=== PATIENT | female | born 1995 | race Caucasian/White ===

== ENCOUNTER 2017-05-16 18:15 | Inpatient (IN) | payer BC ==
[2017-05-16 20:37] LABS: ABS Basophils 0 10^3/ul (0-0.2); ABS Eosinophils 0.1 10^3/ul (0-0.6); ABS Lymphocytes 1.3 10^3/ul (1.0-4.8); ABS Monocytes 0.6 10^3/ul (0-0.8); ABS Neutrophils 2.8 10^3/ul (1.5-7.7); ABS Nucleated RBC 0 10^3/ul; Eosinophil % 1.1 % (0-6); Hematocrit 38 % (35-47); Hemoglobin 12.7 g/dl (12.0-16.0); Lymphocyte % 27.9 % (25-47); Mean Corpuscular HGB Conc 34 g/dl (31-36); Mean Corpuscular Hemoglobin 30 pg (27-31); Mean Corpuscular Volume 91 fL (80-97); Mean Platelet Volume 8 um3 (7.4-10.4); Nucleated Red Blood Cells % 0; Platelet Count 286 10^3/ul (150-450); Red Blood Count 4.18 10^6/ul (4.0-5.4); Red Cell Distribution Width 14 % (10.5-15); White Blood Count 4.8 10^3/ul (3.5-10.8)
[2017-05-16 20:44] LABS: EGFR Non-African American 95.8 (>60)
--- NOTE | 2017-05-17 00:01 | ED ---
Progress - Consult/PCP Time Called: 18:15 Course/Dx - Course Course Of Treatment: ADMIT MHU - Diagnoses Provider Diagnoses: Mental health problem
[2017-05-17] MEDS ORDERED: Gabapentin CAP(*) 300 MG ONE (01:19)
[2017-05-17] MEDS ORDERED: Mirtazapine TAB* 15 MG ONE (01:19)
[2017-05-17] MEDS ORDERED: Al Hydrox/Mg Hydrox/Simet LIQ* 30 ML UDC PO PRN (03:09)
[2017-05-17] MEDS ORDERED: Mouth Piece, Nicotine* 1 EACH CARTRIDGE INH ONE (04:00)
[2017-05-17] MEDS: Vitamin THERAPEUTIC TAB PO SCH (08:07)
[2017-05-17] MEDS ORDERED: Gabapentin CAP(*) 300 MG PO SCH (09:00)
[2017-05-17] MEDS ORDERED: Mouth Piece, Nicotine* 1 EACH CARTRIDGE ONE (10:06)
[2017-05-17] MEDS: Nicotine Inhaler* 10 MG AMP INH PRN (10:06)
[2017-05-17] MEDS: Acetaminophen TAB* 325 MG PO PRN ×2 (10:48→15:16)
--- NOTE | 2017-05-17 11:30 | PN ---
MHU: Group Therapy Note - Service Type Service Type: [id number] Group Psychotherapy - Cognitive Behavioral Group Therapy ( CBT):Patient was attentive and participatory in CBT programming this morning, and remained in good behavioral control. Patient expressed positive insights regarding relevant treatment interventions and goals.
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
[2017-05-17] MEDS ORDERED: traZODone TAB* 50 MG TAB PO PRN (12:45)
[2017-05-17] MEDS ORDERED: clonazePAM TAB(*) 0.5 MG PO ONE ×2 (12:47→13:45)
[2017-05-17] MEDS: DULoxetine DR CAP* 30 MG CAP.DR PO SCH (13:05)
[2017-05-17] MEDS: Gabapentin CAP(*) 400 MG PO SCH ×2 (13:05→20:39)
[2017-05-17] MEDS: Nicotine GUM* 2 MG PO PRN (13:51)
[2017-05-17] MEDS: clonazePAM TAB(*) 0.5 MG PO PRN ×2 (17:55→22:30)
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
[2017-05-17] MEDS: Temazepam CAP* 15 MG PO SCH (20:39)
[2017-05-17] MEDS ORDERED: Mirtazapine TAB* 15 MG PO SCH (21:00)
[2017-05-18] MEDS: DULoxetine DR CAP* 30 MG CAP.DR PO SCH (08:25)
[2017-05-18] MEDS: DEXMETHYLPHENIDATE 15 MG PO SCH (08:25)
[2017-05-18] MEDS: Gabapentin CAP(*) 400 MG PO SCH ×3 (08:25→20:45)
[2017-05-18] MEDS: clonazePAM TAB(*) 0.5 MG PO PRN ×3 (08:26→16:20)
[2017-05-18] MEDS: Nicotine GUM* 2 MG PO PRN (09:15)
[2017-05-18] MEDS: Vitamin THERAPEUTIC TAB PO SCH (09:35)
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
[2017-05-18] MEDS ORDERED: ALPRAZolam TAB* 0.25 MG PO ONE (18:15)
[2017-05-18] MEDS: ALPRAZolam TAB* 0.25 MG PO PRN (20:45)
[2017-05-18] MEDS: Temazepam CAP* 15 MG PO SCH (20:45)
[2017-05-19] MEDS: DEXMETHYLPHENIDATE 15 MG PO SCH (08:20)
[2017-05-19] MEDS: DULoxetine DR CAP* 30 MG CAP.DR PO SCH (08:21)
[2017-05-19] MEDS: Gabapentin CAP(*) 400 MG PO SCH ×3 (08:21→20:06)
[2017-05-19] MEDS: Vitamin THERAPEUTIC TAB PO SCH (08:21)
[2017-05-19] MEDS: ALPRAZolam TAB* 0.25 MG PO SCH ×3 (08:23→16:38)
[2017-05-19] MEDS: ALPRAZolam TAB* 0.25 MG PO PRN ×2 (10:42→18:49)
[2017-05-19] MEDS: Nicotine Inhaler* 10 MG AMP INH PRN (10:43)
[2017-05-19 19:43] LABS: Urine Appearance Cloudy; Urine Blood 1+ (Negative); Urine Color Amber; Urine Ketones 1+ (Negative); Urine Protein 1+(30 mg/dL) (Negative); Urine Specific Gravity 1.028 (1.010-1.030); Urine Urobilinogen Negative (Negative)
[2017-05-19] MEDS: Temazepam CAP* 15 MG PO SCH (20:06)
[2017-05-20] MEDS: Nicotine Inhaler* 10 MG AMP INH PRN (06:50)
[2017-05-20] MEDS: Acetaminophen TAB* 325 MG PO PRN (07:32)
[2017-05-20] MEDS: DULoxetine DR CAP* 30 MG CAP.DR PO SCH (07:32)
[2017-05-20] MEDS: DEXMETHYLPHENIDATE 15 MG PO SCH (07:32)
[2017-05-20] MEDS: Gabapentin CAP(*) 400 MG PO SCH ×3 (07:32→21:48)
[2017-05-20] MEDS: ALPRAZolam TAB* 0.25 MG PO SCH ×3 (07:33→17:08)
[2017-05-20] MEDS: Vitamin THERAPEUTIC TAB PO SCH (07:33)
[2017-05-20] MEDS: ALPRAZolam TAB* 0.25 MG PO PRN ×3 (10:21→21:48)
[2017-05-20] MEDS: Nicotine GUM* 2 MG PO PRN (14:16)
--- NOTE | 2017-05-20 17:51 | PN ---
Subjective - Subjective Subjective: Mara maintains her request for discharge (submitted a 72-hour notice on Sunday05/18/17). Being here makes me more anxious and depressed. She c/o poor sleep, numbness of her upper lip and philtrum. She describes that relatives have been visiting. She continues with poor insight even after psychoeducation that she came in in a crisis situation and leaving prematurely may lead to further decompensation and readmission. Objective - Appearance Appearance: Healthy Appearing Dysmorphic Features: No Hygiene: Normal Grooming: Well Kept - Behavior Psychomotor Activities: Abnormal-Decreased - Attitude and Relatedness Attitude and Relatedness: Child Like Eye Contact: Poor - Speech Quality: Unpressured Latencies: Normal Quantity: Terse - Mood Patient's Decription of Mood: "Anxious" - Affect Observed Affect: Tearful Affect Consistent with: Dysphoria - Thought Process Patient's Thought Process: Coherent, Impoverished Thought Content: No Passive Wish, No Suicidal Planning, No Homicidal Ideation, No Paranoid Ideation - Sensorium Experiencing Hallucinations: No, Sensorium is Clear - Level of Consciousness Level of Consciousness: Alert Orientation: Yes Intact - Impulse Control Impulse Control: Intact - Insight and Judgement Insight and Judgement: Poor - Group Participation Particating in Group Activities: Yes - Medication Management Medication Management Adherence: Yes Assessment - Assessment Merits Inpatient Hospitalization: For Ongoing Evaluation, Consolidate Improvements, For Discharge Planning Inpatient DSM-IV Dx: ADHD; LD; Unspecified anxiety disorder; Considrations for PTSD; Clinical Impression: Poor therapeutic engagement, fixated on discharge home, compliant with prescribed meds. Plan - Plan Treatment Plan: Name: MARA RODRIGUEZ Birthdate: 1995 [id number] Medications: Current Medications Acetaminophen (Tylenol Tab*) 650 mg PO Q4H PRN PRN Reason: PAIN or TEMP > 101 F Last Admin: 05/20/17 07:32 Dose: 650 mg Al Hydrox/Mg Hydrox/Simethicone (Maalox Plus*) 30 ml PO Q4H PRN PRN Reason: INDIGESTION Alprazolam (Xanax Tab*) 0.25 mg PO TID@0900,1300,1700 [facility] Last Admin: 05/20/17 17:08 Dose: 0.25 mg Alprazolam (Xanax Tab*) 0.25 mg PO Q4H PRN PRN Reason: ANXIETY Last Admin: 05/20/17 15:12 Dose: 0.25 mg Dexmethylphenidate HCl (Focalin Xr (Nf)) 15 mg PO DAILY [facility] Last Admin: 05/20/17 07:32 Dose: 15 mg Duloxetine HCl (Cymbalta Cap*) 30 mg PO DAILY [facility] Last Admin: 05/20/17 07:32 Dose: 30 mg Gabapentin (Neurontin Cap(*)) 400 mg PO TID [facility] Last Admin: 05/20/17 12:30 Dose: 400 mg Multivitamins (Theragran Tab*) 1 tab PO DAILY [facility] Last Admin: 05/20/17 07:33 Dose: 1 tab Nicotine (Nicotine Inhaler*) 10 mg INH Q2H PRN PRN Reason: CRAVING Last Admin: 05/20/17 06:50 Dose: 10 mg Nicotine Polacrilex (Nicotine Gum*) 2 mg PO Q2H PRN PRN Reason: CRAVING Last Admin: 05/20/17 14:16 Dose: 2 mg Temazepam (Restoril Cap*) 15 mg PO BEDTIME [facility] Last Admin: 05/19/17 20:06 Dose: 15 mg Trazodone HCl (Desyrel Tab*) 50 mg PO BEDTIME PRN PRN Reason: INSOMNIA Last Admin: 05/18/17 20:45 Dose: 50 mg - Discharge Plan Discharge Plan: Outpatient Follow Up Outpatient Program: [facility]
[2017-05-20] MEDS: Temazepam CAP* 15 MG PO SCH (21:48)
[2017-05-21] MEDS: ALPRAZolam TAB* 0.25 MG PO PRN (06:21)
[2017-05-21] MEDS: Gabapentin CAP(*) 400 MG PO SCH (08:25)
[2017-05-21] MEDS: DEXMETHYLPHENIDATE 15 MG PO SCH (08:25)
[2017-05-21] MEDS: DULoxetine DR CAP* 30 MG CAP.DR PO SCH (08:25)
[2017-05-21] MEDS: Acetaminophen TAB* 325 MG PO PRN (08:25)
[2017-05-21] MEDS: ALPRAZolam TAB* 0.25 MG PO SCH (08:26)
[2017-05-21] MEDS: Vitamin THERAPEUTIC TAB PO SCH (08:26)
[2017-05-21 08:37] VITALS: BP 132/65
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
== END 2017-05-21 12:40 | disposition home or self-care (01) | DRG 758 ==
LOC: ED 18:15 → BSU 23:41
PROVIDERS: ADMIT Psychiatry & Neurology Psychiatry; ATTEND Psychiatry & Neurology Psychiatry
DX: F90.0 Attention-deficit hyperactivity disorder, predominantly inattentive type (principal); R45.851 Suicidal ideations; F41.9 Anxiety disorder, unspecified; F12.10 Cannabis abuse, uncomplicated; F10.10 Alcohol abuse, uncomplicated; F81.2 Mathematics disorder; F81.0 Specific reading disorder; Y90.0 Blood alcohol level of less than 20 mg/100 ml; Z79.899 Other long term (current) drug therapy; Z88.2 Allergy status to sulfonamides; Z88.8 Allergy status to other drugs, medicaments and biological substances; Z81.8 Family history of other mental and behavioral disorders
CPT/HCPCS: 36415; 70551; 80053; 80307; 80320; 80329; 81003; 81015; 84443; 84702; 85025; 90853; 99222; 99231; 99232; 99238; 99285; A9270-GY; G0480

== ENCOUNTER 2018-06-29 18:05 | Inpatient (IN) | payer BC ==
--- NOTE | 2018-06-29 18:28 | ED ---
Medical Screening - HPI Summary HPI Summary: Patient complains of SI and taking potentially 17 pills of focalin ER 10 mg last night. Prescription was filled yesterday, patient states she took pills yesterday night, and 17 pills are missing from the prescription in the bottle. Parents called EMS because patient was acting strangely, appearing paranoid and also has not slept since taking pills. Patient herself is alert and oriented, calm, denies any symptoms including fever, cough, sore throat, CP, SOB, N/V/D, bowel pain, change in urine, change in BM. Pt states she just wants to go home. Patient interactive but refuses to answer most history of present illness questions. Medical history is ADD, PTSD. - History of Current Complaint Stated Complaint: OVERDOSE/2209 PER PT Time Seen by Provider: 06/29/18 18:08 Onset/Duration: Started Hours Ago PMH/Surg Hx/FS Hx/Imm Hx Endocrine/Hematology History: Denies: Hx Anticoagulant Therapy Cardiovascular History: Denies: Hx Pacemaker/ICD GI History: Denies: Hx Irritable Bowel History: Denies: Hx Acute Renal Failure, Hx Benign Prostatic Hyperplasia Musculoskeletal History: Denies: Hx Rheumatoid Arthritis, Hx Bursitis, Hx Congenital Bone Abnormalities Sensory History: Reports: Hx Contacts or Glasses Denies: Hx Hearing Aid Opthamlomology History: Reports: Hx Contacts or Glasses EENT History: Denies: Hx Deafness Neurological History: Denies: Hx Dementia Psychiatric History: Reports: Hx Anxiety, Hx Depression, Hx Post Traumatic Stress Disorder, Hx Community Mental Health Tx, Hx Bipolar Disorder, Hx Suicide Attempt Denies: Hx Eating Disorder, Hx Panic Disorder, Hx of Violent Episodes Against Others - Immunization History Date of Tetanus Vaccine: June 2012 Infectious Disease History: No Infectious Disease History: Denies: Traveled Outside the [place] in Last 30 Days - Family History Known Family History: Negative: Diabetes, Renal Disease, Respiratory Disease, Seizure Disorder - Social History Alcohol Use: None Substance Use Type: Reports: None Smoking Status (MU): Current Every Day Smoker Type: eCigarettes Have You Smoked in the Last Year: Yes Review of Systems Constitutional: Negative Eyes: Negative ENT: Negative Cardiovascular: Negative Respiratory: Negative Gastrointestinal: Negative Genitourinary: Negative Skin: Negative Neurological: Negative Positive: Anxious All Other Systems Reviewed And Are Negative: Yes Physical Exam Triage Information Reviewed: Yes Vital Signs On Initial Exam: Initial Vitals Temp Pulse Resp BP Pulse Ox 98.4 F 81 18 136/91 96 06/29/18 18:09 06/29/18 18:09 06/29/18 18:09 06/29/18 18:09 06/29/18 18:09 Vital Signs Reviewed: Yes Appearance: Positive: Well-Appearing Skin: Positive: Warm Head/Face: Positive: Normal Head/Face Inspection Eyes: Positive: Normal Neck: Positive: Supple Respiratory/Lung Sounds: Positive: Clear to Auscultation Cardiovascular: Positive: Normal Abdomen Description: Positive: Nontender Musculoskeletal: Positive: Normal Neurological: Positive: Normal Psychiatric: Positive: Normal AVPU Assessment: Alert - Beaver Coma Scale Best Eye Response: 4 - Spontaneous Best Motor Response: 6 - Obeys Commands Best Verbal Response: 5 - Oriented Coma Scale Total: 15 Diagnostics - Vital Signs Vital Signs Temp Pulse Resp BP Pulse Ox 06/29/18 18:09 98.4 F 81 18 136/91 96 - Laboratory Result Diagrams: 06/29/18 18:32 06/29/18 18:32 Lab Statement: Any lab studies that have been ordered have been reviewed, and results considered in the medical decision making process. Re-Evaluation - Re-Evaluation First Eval Re-Evaluation Time: 08:55 Change: Worse Comment: Pt is upset and crying. She states she wants to leave and attempted to walk out of the ED. Will give Geodon, Ativan, and soft restraints. Course/Dx - Course Course Of Treatment: Patient complains of SI and taking potentially 17 pills of focalin ER 10 mg last night. Prescription was filled yesterday, patient states she took pills yesterday night, and 17 pills are missing from the prescription in the bottle. Parents called EMS because patient was acting strangely, appearing paranoid and also has not slept since taking pills. Patient herself is alert and oriented, calm, denies any symptoms including fever, cough, sore throat, CP, SOB, N/V/D, bowel pain, change in urine, change in BM. Pt states she just wants to go home. Patient interactive but refuses to answer most history of present illness questions. Medical history is ADD, PTSD. Physical exam unremarkable. Vital signs within normal limits. Labs unremarkable. EKG sinus rhythm with normal QRS and QTc. Patient increasingly agitated here in the ED. Poison control recommended ordering CK level, and observing 12 hours as pt took Focalin ER. Observation would thus end at 6 AM. Also stated patient could be given benzodiazepine for agitation. Patient agitation decreased after Ativan 2 mg IM. - Diagnoses Provider Diagnoses: Suicide attempt, Amphetamine overdose, Psychotic disorder Discharge - Sign-Out/Discharge Documenting (check all that apply): Sign-Out Patient Signing out patient TO: Trevor Gomez Patient Received Moderate/Deep Sedation with Procedure: No - Discharge Plan Condition: Fair Disposition: PSYCHIATRIC FACILITY-[facility] - Billing Disposition and Condition Condition: FAIR Disposition: Psychiatric Facility [facility]
--- OUTSIDE RECORDS SUMMARY | 2018-06-29 18:40 | XMS REPORT | Continuity of Care Document ---
:1995 External Reference #:[id number] Author Name Raina Arvizu M.D. Address [address] [place] [address] Care Team Providers Name Role Phone LILIYA Kevin Care Team Information Consumer Marketing Manager Unavailable Payers Date Identification Numbers Payment Provider Subscriber Effective: Policy Number: [id number] Child Health Colleen Choi 2011 Plus--ROCH Expires: 2011 PayID: [id number] [address] [address] [place] [address] Effective: 2011 Policy Number: NALLELY/FRANKIE,Child [facility] Plus Mara Choi [id number] Expires: 2012 Group Name: [facility] [address] [address] PayID: [id number] PUMA Husain [id number] Effective: 2012 Policy Number: [id number] [facility] Group Name: [facility] [address] [address] PayID: [id number] [place] [address] Advance Directives Description No Information Available Problems Date Description Provider Status Onset: 07/17/2012 Gastroesophageal reflux disease Gisele Gutierrez M.D., R.D. Active Onset: 07/17/2012 Generalized anxiety disorder LILIYA Jacobs Active Family History Date Family Member(s) Observation Comments Father Hypertension Father Diabetes Father Thyroid Disease - hypothyroid Paternal Grandfather CAD Paternal Grandmother CAD Maternal Grandfather Cancer, Unknown Site "in the eye" Maternal Grandmother due to CAD () - in her 70's Social History Type Date Description Comments Sex Unknown Lives With Mother Lives With Grandfather Diet Healthy, Well Balanced Smoke-Free Home is smoke-free Cigarette Use Negative For current vaping but cutting cigarette smoker down- working on quitting (05/2018) ETOH Use Denies alcohol use Tobacco Use Start: Unknown Patient is a current smoker, smokes some days Recreational Drug Use Denies Drug Use Enjoy Exercising Enjoys exercising Allergies, Adverse Reactions, Alerts Date Description Reaction Status Severity Comments 10/31/2001 Sulfa Active Rash Medications Medication Date Status Form Strength Qnty SIG Indications Ordering Provider Vitamin B-12 07/16 Active Tablets 500mcg 30tab 1 by mouth Shawnti Natural s every day LILIYA Calderón Vitamin D-1000 07/16 Active Tablets 1000Unit 1 by mouth Shawnti Maximum Strength /2017 every day LILIYA Calderón Gabapentin 11/29 Active Capsules 400mg 120ca 1 tab by Cuong ps mouth four [place] times a , MD day Nexplanon 04/26 Active Implant 68mg inserted Raina04/26/2016- Topher Arvizu, 04/2019 Ra Dexmethylphenidat Active Caps ER 10mg Unknown e Hydrochloride / 24HR ER Gabapentin 06/14 Hx Capsules 400mg 40cap 1 po qid s Guillermo Zaman, Marielena [employer] 06/24 Ondansetron 11/22 Hx Tablets 4mg 15tab dissolve 1 R11.0 Dispers s tab by Jackson, - mouth [employer] 03/26 times a day as needed nausea Pantoprazole 11/[address] 40mg 90tab 1 by mouth R11.0 Freda Sodium s every day Jackson, - [employer] 03/26 Bacitracin Zinc 11/22 Hx Ointment 500Unit/G 14gm apply to S60.414A M wound Jackson, - twice [employer] 03/26 daily needed Xanax 10/31 Hx Tablets 0.5mg 30tab 1/2 to 1 Freda s by mouth Jackson, - twice a [employer] 03/26 day needed anxiety Gabapentin 10/16 Hx Capsules 400mg 90cap 1 tab by s mouth Jackson, - three [employer] 11/28 times a day Clonazepam 10/12 Hx Tablets 0.5mg 60tab 1 by mouth s three Jackson, - times a [employer] 10/31 day needed for anxiety Sertraline HCL 09/15 Hx Tablets 100mg 90tab 1 by mouth F41.1 s every day Jackson, - [employer] 09/15 Sertraline HCL 09/15 Hx Tablets 100mg 90tab 1 by mouth F41.1 s every day Jackson, - [employer] 03/26 Sertraline HCL 09/15 Hx Tablets 50mg 90tab 1 by mouth s every day Jackson, - along with [employer] 03/26 100mg /2016 Effexor XR 09/13 Hx Caps ER 75mg 30cap 1 by mouth 24HR s every day Jackson, - [employer] 09/13 Effexor XR 09/13 Hx Caps ER 150mg 30cap take one 24HR s capsule by Jackson, - mouth [employer] 09/15 every as needed for anxiety/de pression Sertraline HCL 08/15 Hx Tablets 100mg 30tab 1 by mouth F41.1 s every day Jackson, - [employer] 09/15 Sertraline HCL 07/18 Hx Tablets 50mg 30tab 1 by mouth F41.1 s every day Jackson, - [employer] 08/15 Effexor XR 07/11 Hx Caps ER 37.5mg 30cap 1 by mouth 24HR s every day Jackson, - [employer] 09/13 Effexor XR 05/22 Hx Caps ER 75mg 90cap take 1 24HR s capsule by Jackson, - mouth once [employer] 07/11 Effexor XR 05/14 Hx Caps ER 37.5mg 30cap 1 capsule 24HR s qd Jackson, - [employer] 05/22 Mupirocin 11/25 Hx Ointment 2% 22gm apply a small Jackson, - amount to [employer] 03/26 area(s) daily Gabapentin 06/21 Hx Capsules 400mg 270ca 1 tab by ps mouth Cherelle - three III, 07/18 times a [employer] day Gabapentin 04/05 Hx Tablets 800mg 90tab take one s tablet by Jackson, - mouth [employer] 06/21 twice a day Xanax 04/05 Hx Tablets 1mg 23tab 1 tab by s mouth once Jackson, - a day [employer] 10/16 Klonopin 06/13 Hx Tablets 1mg 60tab 04/17 to 1 300.02 s tab by Jackson, - mouth [employer] 04/05 twice day Buspirone HCL 05/12 Hx Tablets 5mg 60tab 1 po bid V25.09 s Jackson, - [employer] 06/13 Xanax 05/12 Hx Tablets 0.25mg 15fif 1 tab po V25.09 teen qd prn Jackson, - anxiety [employer] 06/13 Paroxetine HCL 10/21 Hx Tablets 10mg 30tab 1 po qd as 300.02 s directed Jackson, - in [employer] 05/12 tapering instructio ns Depo-Provera 07/03 Hx Suspension 150mg/ml 1 ml im q 3 mos Jackson, - [employer] 07/18 Gummi Bear 02/16 Hx Chewtabs 1 po qd Gisele Multivitamin/ lonnie Gutierrez M.D., 05/12 R.D. /2013 Omeprazole 02/[address] 20mg 30cap 1 po qd 530.81 Marielena Gacria M.D., 05/12 R.D. /2013 Paroxetine HCL 04/24 Hx Tablets 40mg 90tab take 1 300.02 s tablet po Jackson, - daily [employer] 11/18 Amoxicillin 03/23 Hx Capsules 500mg 30cap 1 po tid 382.9 Shawnti s for Guillermo Zaman, - infection [employer] 04/02 Paroxetine HCL 03/06 Hx Tablets 30mg 30tab 1 po qd 300.02 s Jackson, - [employer] 04/24 Hydroxyzine HCL 03/06 Hx Tablets 25mg 30tab 1-2 po q 6 300.02 s hr prn Jackson, - [employer] 02/16 Ergocalciferol 03/06 Hx Tablets 50,000Uni 8tabs take 1 300.02 ts tablet Jackson, - twice a [employer] 02/16 week for weeks Fluoxetine HCL 01/24 Hx Capsules 40mg 30cap Take 1 s tablet po Jackson, - hs [employer] 02/16 Fluoxetine HCL 12/27 Hx Capsules 10mg 100ca 3 tablet 311 ps po qd Jackson, - [employer] 01/24 Fluoxetine HCL 12/12 Hx Capsules 10mg 49QS 1 tablet 311 po qd for Jackson, - 1 week [employer] 12/27 then tablets po daily Ciprofloxacin 05/25 Hx Solution 0.3% 5ml 2 gtts Zaid Ophthalmic /2005 q4h, while Keagan, - awake M.D. 10/27 Cipro HC 04/18 Hx Suspension 0.2%;1 % 10ml 3 gtts Otic bid Keagan - M.D. 07/17 Positive 06/20 Hx had Jody Varicella Titer /2004 chicken A. - pox age 2. Tirso, 05/25 titer F.N.P.C. /2005 drawn 06/03/04. proof of immunity Kenalog 06/30 Hx Cream 0.1% 30G apply bid 782.1 Amy /2003 to itchy K.W. - rash Eb, 10/27 M.D. /2005 Septra 09/16 Hx 40/200Sus QS 2 tsp po Raina /2001 p bid for 7 P. - days Blegen, 06/03 M.D. /2004 Amoxicillin 06/25 Hx Tabs 250mg 30tab Chew And 034.0 s Swallow P. - One Tablet Blegen, 07/05 Three M.D. Times Per Day Until Prescripti on Is Finished Omeprazole Hx Capsules DR 20mg 30cap 1 by mouth Cuong /0000 s every day Mauricio Peguero MD 07/18 Alprazolam Hx Tablets 1mg 90tab Take One Freda /0000 s Tablet By Jackson, - Mouth [employer] 07/18 Times A Day Maximum Daily Dose=3 Aripiprazole Hx Tablets 5mg Unknown / - 07/16 Clonazepam Hx Tablets 0.5mg Unknown - 07/16 Trazodone HCL Hx Tablets 50mg Unknown - 07/16 Alprazolam Hx Tablets 0.25mg Unknown - 07/16 Dexmethylphenidat Hx Caps ER 20mg Unknown e HCL ER /0000 24HR - 07/16 [address]ox[address] HCL Hx Caps [address] 30mg Unknown /0000 Part - 07/16 Medications Administered in Office Medication Date Status Form Strength Qnty SIG Indications Ordering Provider Medroxyprogesteron 02/13 Administered Injection Lab and e Acetate 1 MG Office (Depo-Provera) Services Injection Medroxyprogesteron 11/25 Administered Injection Freda e Acetate MG Jackson (Depo-Provera) [employer] Injection Medroxyprogesteron 09/05 Administered Injection Lab and e Acetate MG Office (Depo-Provera) Services Injection Medroxyprogesteron 06/17 Administered Injection Freda e Acetate 1 MG Jackson (Depo-Provera) [employer] Injection Medroxyprogesteron 04/05 Administered Injection Lab and e Acetate MG Office (Depo-Provera) Services Injection Medroxyprogesteron 10/03 Administered Injection Freda e Acetate 1 MG Jackson (Depo-Provera) [employer] Injection Medroxyprogesteron 07/22 Administered Injection Lab and e Acetate 1 MG Office (Depo-Provera) Services Injection Medroxyprogesteron 05/12 Administered Injection Freda e Acetate 1 MG /2013 Jackson, (Depo-Provera) [employer] Injection Medroxyprogesteron 02/21 Administered Injection Amy e Acetate 1 MG /2012 Nanda (Depo-Provera) Eb, Injection M.D. Medroxyprogesteron 10/21 Administered Injection Freda e Acetate 1 MG /2012 Jackson, (Depo-Provera) [employer] Injection Medroxyprogesteron 08/05 Administered Injection Lab and e Acetate 1 MG /2012 Office (Depo-Provera) Services Injection Depo 05/06 Administered Injection Gisele Provera--Injection /2012 Brenda, --150 MG M.D., R.D. Immunizations CPT Code Status Date Vaccine Lot # [id number] Given 03/26/2017 Influenza Virus Vaccine, Quadrivalent, 3 Yr > [id number] Quad, Preserv Free 33203 Given 03/15/2016 Influenza Virus Vaccine, Quadrivalent, 3 Yr > [id number] Quad, Preserv Free 99585 Given 03/15/2016 HPV Vaccine 9 (Gardasil 9), 3 Dose [id number] 84766 Given 10/27/2005 Tdap (Adacel) [id number] 79601 Given 06/06/1995 DPT & Hib Vaccine, Combined 59696 Given 05/02/1995 MMR (Measles,Mumps,Rubella) 47475 Given 1994 Hep B Vaccine, Ped/Adol Dose 3 Dose VFC (Engerix or Recombivax) 26892 Given 1994 Opv (Poliovirus,Oral) 27357 Given 1994 DPT 95688 Given 1994 Hib (Hemophilus Influenza B) (Acthib) 08637 Given 1994 DPT & Hib Vaccine, Combined 40966 Given 1994 Opv (Poliovirus,Oral) 72239 Given 1994 Hep B Vaccine, Ped/Adol Dose 3 Dose VFC (Engerix or Recombivax) 55176 Given 1994 DPT & Hib Vaccine, Combined 83566 Given 1994 Opv (Poliovirus,Oral) 13526 Given 1994 Hep B Vaccine, Ped/Adol Dose 3 Dose VFC (Engerix or Recombivax) Vital Signs Date Vital Result Comment 06/04/2018 3:36pm Weight 123.00 lb Weight 55.793 kg BP Systolic 108 mmHg BP Diastolic 68 mmHg Heart Rate 68 /min Body Temperature 98.2 F Respiratory Rate 16 /min O2 % BldC Oximetry 98 % 07/16/2017 10:34am Weight 138.00 lb Weight 62.597 kg BP Systolic 100 mmHg BP Diastolic 62 mmHg Heart Rate 68 /min Body Temperature 98.4 F Respiratory Rate 16 /min 03/26/2017 2:00pm Weight 140.00 lb Weight 63.504 kg BP Systolic 110 mmHg BP Diastolic 64 mmHg Heart Rate 65 /min Body Temperature 96.8 F Respiratory Rate 16 /min O2 % BldC Oximetry 99 % 11/22/2016 4:35pm Weight 147.00 lb Weight 66.679 kg BP Systolic 110 mmHg BP Diastolic 70 mmHg Heart Rate 56 /min Body Temperature 97.9 F Respiratory Rate 14 /min 10/16/2016 3:40pm Weight 150.00 lb Weight 68.040 kg BP Systolic 100 mmHg BP Diastolic 52 mmHg Heart Rate 88 /min 08/15/2016 4:27pm Weight 150.00 lb Weight 68.040 kg BP Systolic 100 mmHg BP Diastolic 65 mmHg Heart Rate 64 /min Body Temperature 99.5 F 07/18/2016 3:29pm Weight 151.00 lb Weight 68.494 kg BP Systolic 110 mmHg BP Diastolic 70 mmHg Heart Rate 88 /min Body Temperature 98.2 F Respiratory Rate 14 /min O2 % BldC Oximetry 98 % 04/26/2016 4:13pm Weight 155.00 lb Weight 70.308 kg BP Systolic 120 mmHg BP Diastolic 78 mmHg Heart Rate 64 /min 04/21/2016 4:24pm Weight 155.00 lb Weight 70.308 kg BP Systolic 108 mmHg BP Diastolic 72 mmHg Heart Rate 71 /min Body Temperature 99.2 F Respiratory Rate 16 /min Height 64.5 inches 5'4.50" BMI (Body Mass Index) 26.2 kg/m2 O2 % BldC Oximetry 99 % 03/15/2016 2:36pm Weight 156.00 lb Weight 70.762 kg BP Systolic 120 mmHg BP Diastolic 60 mmHg Heart Rate 80 /min O2 % BldC Oximetry 99 % 11/26/2015 3:35pm Weight 154.00 lb Weight 69.854 kg BP Systolic 110 mmHg BP Diastolic 74 mmHg Heart Rate 85 /min Body Temperature 99.0 F Respiratory Rate 16 /min 06/22/2015 4:21pm Weight 157.00 lb Weight 71.215 kg BP Systolic 110 mmHg BP Diastolic 80 mmHg Heart Rate 68 /min 06/18/2015 11:17am Weight 154.00 lb Weight 69.854 kg BP Systolic 118 mmHg BP Diastolic 66 mmHg Heart Rate 72 /min Body Temperature 98.9 F 11/23/2014 4:17pm Weight 152.00 lb Weight 68.947 kg BP Systolic 110 mmHg BP Diastolic 64 mmHg Heart Rate 72 /min 10/03/2013 4:10pm Weight 143.00 lb Weight 64.865 kg BP Systolic 98 mmHg BP Diastolic 60 mmHg Heart Rate 84 /min 06/13/2013 8:54am Weight 140.00 lb Weight 63.504 kg BP Systolic 114 mmHg BP Diastolic 68 mmHg Heart Rate 84 /min Height 64.5 inches 5'4.50" BMI (Body Mass Index) 23.7 kg/m2 05/12/2013 9:03am Weight 146.00 lb W/Boots Weight 66.226 kg BP Systolic 90 mmHg BP Diastolic 56 mmHg Heart Rate 72 /min 02/21/2013 9:55am Weight 150.00 lb Weight 68.040 kg BP Systolic 98 mmHg BP Diastolic 72 mmHg Heart Rate 72 /min Body Temperature 97.6 F 01/10/2013 11:13am Weight 148.00 lb Weight 67.133 kg BP Systolic 96 mmHg BP Diastolic 74 mmHg Heart Rate 76 /min Weight Percentile 80th 11/18/2012 2:46pm Weight 141.00 lb Weight 63.958 kg BP Systolic 110 mmHg BP Diastolic 70 mmHg Heart Rate 76 /min Body Temperature 98.4 F Weight Percentile 74th 10/21/2012 9:00am Weight 139.00 lb Weight 63.050 kg BP Systolic 110 mmHg BP Diastolic 66 mmHg Heart Rate 84 /min Weight Percentile 71st 07/03/2012 9:06am Weight 138.00 lb Weight 62.597 kg BP Systolic 116 mmHg BP Diastolic 80 mmHg Heart Rate 80 /min Height 64 inches 5'4" Height Percentile 46 % Weight Percentile 71st BMI (Body Mass Index) 23.7 kg/m2 Body Mass Index Percentile 73 % 05/06/2012 11:03am Weight 141.00 lb Weight 63.958 kg BP Systolic 102 mmHg BP Diastolic 68 mmHg Heart Rate 80 /min Weight Percentile 75th 02/17/2012 8:54am Weight 140.00 lb Weight 63.504 kg BP Systolic 104 mmHg BP Diastolic 80 mmHg Heart Rate 84 /min Body Temperature 98.0 F Weight Percentile 75th 04/24/2011 3:32pm Weight 135.00 lb Weight 61.236 kg BP Systolic 124 mmHg BP Diastolic 60 mmHg Heart Rate 108 /min Weight Percentile 71st 03/23/2011 4:46pm Weight 128.00 lb Weight 58.061 kg BP Systolic 98 mmHg BP Diastolic 60 mmHg Heart Rate 874 /min Body Temperature 99.2 F Weight Percentile 61st 03/06/2011 11:01am Weight 131.00 lb Weight 59.422 kg BP Systolic 106 mmHg BP Diastolic 68 mmHg Heart Rate 84 /min Weight Percentile 66th 01/24/2011 9:13am Weight 135.00 lb Weight 61.236 kg BP Systolic 88 mmHg BP Diastolic 62 mmHg Heart Rate 68 /min Height 65 inches 5'5" Height Percentile 63 % Weight Percentile 72nd BMI (Body Mass Index) 22.5 kg/m2 Body Mass Index Percentile 67 % 12/27/2010 8:57am Weight 134.00 lb Weight 60.782 kg BP Systolic 86 mmHg BP Diastolic 60 mmHg Heart Rate 68 /min Body Temperature 97.7 F Weight Percentile 7112/12/2010 9:24am Weight 138.00 lb Weight 62.597 kg BP Systolic 96 mmHg BP Diastolic 60 mmHg Heart Rate 60 /min Weight Percentile 76th 04/19/2010 3:39pm Weight 137.00 lb Weight 62.143 kg BP Systolic 110 mmHg BP Diastolic 64 mmHg Heart Rate 72 /min Weight Percentile 7704/18/2010 4:13pm Weight 138.00 lb Weight 62.597 kg BP Systolic 104 mmHg BP Diastolic 60 mmHg Heart Rate 94 /min Weight Percentile 78th 10/29/2009 3:25pm Weight 136.00 lb Weight 61.690 kg BP Systolic 110 mmHg BP Diastolic 68 mmHg Heart Rate 76 /min Body Temperature 99.5 F Weight Percentile 7707/28/2009 4:11pm Weight 134.00 lb Weight 60.782 kg BP Systolic 105 mmHg BP Diastolic 70 mmHg Heart Rate 72 /min Body Temperature 98.8 F Weight Percentile 76th O2 % BldC Oximetry 99 % AT Room Air 03/25/2008 2:34pm Weight 124.00 lb Weight 56.246 kg BP Systolic 100 mmHg BP Diastolic 70 mmHg Heart Rate 80 /min Body Temperature 97.7 F Weight Percentile 74th 02/24/2008 3:07pm Weight 125.00 lb Weight 56.700 kg Body Temperature 97.6 F Weight Percentile 76th 07/17/2007 4:14pm Weight 135.00 lb Weight 61.236 kg Body Temperature 101.4 F Weight Percentile 9011/19/2006 12:03pm Weight 128.00 lb Weight 58.061 kg BP Systolic 100 mmHg BP Diastolic 60 mmHg Body Temperature 99.2 F Weight Percentile 9011/09/2006 3:36pm Weight 128.00 lb Weight 58.061 kg BP Systolic 110 mmHg BP Diastolic 70 mmHg Body Temperature 97.0 F Weight Percentile 90th 10/27/2005 12:56pm Weight 126.00 lb Weight 57.154 kg BP Systolic 98 mmHg BP Diastolic 62 mmHg Heart Rate 68 /min Height 61.25 inches 5'1.25" Height Percentile 81 % Weight Percentile 95th BMI (Body Mass Index) 23.6 kg/m2 Body Mass Index Percentile 95 % Right Visual Acuity Distance 20/20 Left Visual Acuity Distance 20/20 05/25/2005 11:04am Weight 115.00 lb Weight 52.164 kg Body Temperature 98.3 F Weight Percentile 93rd 05/22/2005 12:05pm Weight 117.00 lb Weight 53.071 kg Body Temperature 97.8 F Weight Percentile 94th 04/18/2005 5:09pm Weight 117.00 lb Weight 53.071 kg Body Temperature 98.2 F Weight Percentile 95th 01/01/2004 4:14pm Weight 89.00 lb Weight 40.370 kg Weight Percentile 87th 07/01/2003 4:09pm Weight 84.00 lb Weight 38.102 kg Body Temperature 98.2 F Weight Percentile 88th 11/17/2002 11:21am Weight 72.00 lb Weight 32.659 kg Body Temperature 99.3 F Weight Percentile 80th 09/05/2002 11:05am Weight 71.00 lb Weight 32.206 kg Body Temperature 99.0 F Weight Percentile 82nd 10/31/2001 2:36pm Weight 60.00 lb BP Systolic 82 mmHg BP Diastolic 60 mmHg Heart Rate 80 /min Respiratory Rate 18 /min Height 50 inches Height Percentile 84 % Weight Percentile 82nd BMI (Body Mass Index) 16.9 kg/m2 09/16/2001 3:38pm Weight 61.00 lb Body Temperature 98.6 F Weight Percentile 84th Results Test Date Facility Test Result H/L Range Note CBC Auto Diff 06/04/2018 [facility] White Blood 6.0 10^3/uL N 3.5-10.8 [phone] Count Red Blood Count 4.03 10^6/uL N 4.00-5.40 Hemoglobin 12.3 g/dL N 12.0-16.0 Hematocrit 37 % N 35-47 Mean Corpuscular Volume 93 fL N 80-97 Mean Corpuscular Hemoglobin 31 pg N 27-31 Mean Corpuscular HGB Conc 33 g/dL N 31-36 Red Cell Distribution Width 14 % N 10.5-15 Platelet Count 298 10^3/uL N 150-450 Mean Platelet Volume 8.0 fL N 7.4-10.4 Abs Neutrophils 4.1 10^3/uL N 1.5-7.7 Abs Lymphocytes 1.4 10^3/uL N 1.0-4.8 Abs Monocytes 0.4 10^3/uL N 0-0.8 Abs Eosinophils 0 10^3/uL N 0-0.6 Abs Basophils 0 10^3/uL N 0-0.2 Abs Nucleated RBC 0 10^3/uL Granulocyte % 68.3 % Lymphocyte % 23.0 % Monocyte % 7.5 % Eosinophil % 0.6 % Basophil % 0.6 % Nucleated Red Blood Cells % 0 Comp Metabolic Panel 06/04/2018 [facility] Sodium 140 mmol/L N 135-145 [phone] Potassium 3.6 mmol/L N 3.5-5.0 Chloride 102 mmol/L N 101-111 Co2 Carbon Dioxide 28 mmol/L N 22-32 Anion Gap 10 mmol/L N 2-11 Glucose 97 mg/dL N 70-100 Blood Urea Nitrogen 5 mg/dL Low 6-24 Creatinine 0.66 mg/dL N 0.51-0.95 BUN/Creatinine Ratio 7.6 Low 8-20 Calcium 10.1 mg/dL N 8.6-10.3 Total Protein 7.5 g/dL N 6.4-8.9 Albumin 5.1 g/dL N 3.2-5.2 Globulin 2.4 g/dL N 2-4 Albumin/Globulin Ratio 2.1 N 1-3 Total Bilirubin 0.80 mg/dL N 0.2-1.0 Alkaline Phosphatase 54 U/L N 34-104 Alt 16 U/L N 7-52 Ast 15 U/L N 13-39 Egfr Non- 110.0 >60 Egfr 133.1 >60 1 Laboratory test 06/04/2018 [facility] Vitamin B12 724 pg/mL N 180-914 2 finding [phone] Vitamin D Total 25(Oh) 23.7 ng/mL N 20-50 3 TSH (Thyroid Stim Horm) 2.08 mcIU/mL N 0.34-5.60 4 Free T4 (Free Thyroxine) 1.18 ng/dL High 0.61-1.12 5 HIV 1/2 AB 06/04/2018 [facility] HIV 1 2 Nonreactive Nonreactive 6 Evaluation [phone] Antibody Laboratory 06/04/2018 [facility] Syphillis Igg Nonreactive Nonreactive 7 test finding [phone] W/Reflex RPR GC/Chlamydia 06/04/2018 [facility] Chlamydia Negative Negative Amplified Rna [phone] trachomatis Rna Neisseria gonorrhoeae (GC) Rna Negative Negative Urine DIP 06/04/2018 [facility] Leukocytes NEG Neg (607)- - Urine Nitrites NEG Neg Urobilinogen NORM Norm Total Protein Urine NEG Neg Urine pH 7 High 5-6 Urine Blood NEG Neg Specific [place] 1.010 1.01-1.02 Urine Ketones 1+ High Neg Urine Bilirubin NEG Neg Urine Glucose NORM Norm CBC Auto Diff 05/16/2017 [facility] White Blood 4.8 10^3/uL N 3.5-10.8 [phone] Count Red Blood Count 4.18 10^6/uL N 4.0-5.4 Hemoglobin 12.7 g/dL N 12.0-16.0 Hematocrit 38 % N 35-47 Mean Corpuscular Volume 91 fL N 80-97 Mean Corpuscular Hemoglobin 30 pg N 27-31 Mean Corpuscular HGB Conc 34 g/dL N 31-36 Red Cell Distribution Width 14 % N 10.5-15 Platelet Count 286 10^3/uL N 150-450 Mean Platelet Volume 8 um3 N 7.4-10.4 Abs Neutrophils 2.8 10^3/uL N 1.5-7.7 Abs Lymphocytes 1.3 10^3/uL N 1.0-4.8 Abs Monocytes 0.6 10^3/uL N 0-0.8 Abs Eosinophils 0.1 10^3/uL N 0-0.6 Abs Basophils 0 10^3/uL N 0-0.2 Abs Nucleated RBC 0 10^3/uL Granulocyte % 58.7 % N 38-83 Lymphocyte % 27.9 % N 25-47 Monocyte % 11.9 % High 1-9 Eosinophil % 1.1 % N 0-6 Basophil % 0.4 % N 0-2 Nucleated Red Blood Cells % 0 Comp Metabolic Panel 05/16/2017 [facility] Sodium 136 mmol/L N 133-145 [phone] Potassium 3.3 mmol/L Low 3.5-5.0 Chloride 99 mmol/L Low 101-111 Co2 Carbon Dioxide 28 mmol/L N 22-32 Anion Gap 9 mmol/L N 2-11 Glucose 100 mg/dL N 70-100 Blood Urea Nitrogen 13 mg/dL N 6-24 Creatinine 0.75 mg/dL N 0.51-0.95 BUN/Creatinine Ratio 17.3 N 8-20 Calcium 9.5 mg/dL N 8.6-10.3 Total Protein 7.9 g/dL N 6.4-8.9 Albumin 4.6 g/dL N 3.2-5.2 Globulin 3.3 g/dL N 2-4 Albumin/Globulin Ratio 1.4 N 1-3 Total Bilirubin 0.40 mg/dL N 0.2-1.0 Alkaline Phosphatase 67 U/L N 34-104 Alt 25 U/L N 7-52 Ast 23 U/L N 13-39 Egfr Non- 95.8 >60 Egfr 123.2 >60 8 Laboratory test 05/16/2017 [facility] HCG < 0.60 mIU/mL 9 finding [phone] Acetaminophen < 15 g/mL 10 Alcohol < 10 mg/dL N <10 Salicylate < 2.50 mg/dL <30 TSH (Thyroid Stimulating Horm) 1.53 mcIU/mL N 0.34-5.60 Urine DIP 03/26/2017 [facility] House [facility] Leukocytes neg Neg (607)- - Urine Nitrites neg Neg Urobilinogen norm Norm Total Protein, Urine trace Neg Urine pH 7 High 5-6 Urine Blood neg Neg Specific [place] 1.015 1.01-1.02 Urine Ketones neg Neg Urine Bilirubin neg Neg Urine Glucose norm Norm Laboratory test 03/26/2017 [facility] HCG DIP Test neg Neg finding (607)- - Laboratory test 03/26/2017 [facility] TSH (Thyroid 0.67 N 0.34-5.60 11 finding [phone] Stim Horm) mcIU/mL Vitamin D Total 25(Oh) 15.1 ng/mL Low 20-50 12 Comp Metabolic Panel 03/26/2017 [facility] Sodium 142 mmol/L N 133-145 [phone] Potassium 4.4 mmol/L N 3.5-5.0 Chloride 105 mmol/L N 101-111 Co2 Carbon Dioxide 27 mmol/L N 22-32 Anion Gap 10 mmol/L N 2-11 Glucose 88 mg/dL N 70-100 Blood Urea Nitrogen 8 mg/dL N 6-24 Creatinine 0.74 mg/dL N 0.51-0.95 BUN/Creatinine Ratio 10.8 N 8-20 Calcium 9.7 mg/dL N 8.6-10.3 Total Protein 6.9 g/dL N 6.4-8.9 Albumin 4.6 g/dL N 3.2-5.2 Globulin 2.3 g/dL N 2-4 Albumin/Globulin Ratio 2.0 N 1-3 Total Bilirubin 0.50 mg/dL N 0.2-1.0 Alkaline Phosphatase 57 U/L N 34-104 Alt 19 U/L N 7-52 Ast 19 U/L N 13-39 Egfr Non- 97.3 >60 Egfr 125.1 >60 13 CBC Auto Diff 03/26/2017 [facility] White Blood 5.0 10^3/uL N 3.5-10.8 [phone] Count Red Blood Count 3.99 10^6/uL Low 4.0-5.4 Hemoglobin 12.1 g/dL N 12.0-16.0 Hematocrit 37 % N 35-47 Mean Corpuscular Volume 92 fL N 80-97 Mean Corpuscular Hemoglobin 30 pg N 27-31 Mean Corpuscular HGB Conc 33 g/dL N 31-36 Red Cell Distribution Width 14 % N 10.5-15 Platelet Count 246 10^3/uL N 150-450 Mean Platelet Volume 8 um3 N 7.4-10.4 Abs Neutrophils 3.2 10^3/uL N 1.5-7.7 Abs Lymphocytes 1.4 10^3/uL N 1.0-4.8 Abs Monocytes 0.3 10^3/uL N 0-0.8 Abs Eosinophils 0.1 10^3/uL N 0-0.6 Abs Basophils 0 10^3/uL N 0-0.2 Abs Nucleated RBC 0 10^3/uL Granulocyte % 63.6 % N 38-83 Lymphocyte % 27.6 % N 25-47 Monocyte % 6.7 % N 1-9 Eosinophil % 1.3 % N 0-6 Basophil % 0.8 % N 0-2 Nucleated Red Blood Cells % 0 Laboratory test 11/22/2016 [facility] HCG DIP Test <pending> Neg finding (607)- - Laboratory test 04/26/2016 [facility] HCG DIP Test NEG Neg finding (607)- - CBC Auto Diff 11/26/2015 [facility] White Blood 6.2 10^3/uL N 3.5-10.8 [phone] Count Red Blood Count 4.40 10^6/uL N 4.0-5.4 Hemoglobin 13.0 g/dL N 12.0-16.0 Hematocrit 40 % N 35-47 Mean Corpuscular Volume 91 fL N 80-97 Mean Corpuscular Hemoglobin 30 pg N 27-31 Mean Corpuscular HGB Conc 33 g/dL N 31-36 Red Cell Distribution Width 13 % N 10.5-15 Platelet Count 278 10^3/uL N 150-450 Mean Platelet Volume 8 um3 N 7.4-10.4 Abs Neutrophils 4.8 10^3/uL N 1.5-7.7 Abs Lymphocytes 1.1 10^3/uL N 1.0-4.8 Abs Monocytes 0.3 10^3/uL N 0-0.8 Abs Eosinophils 0 10^3/uL N 0-0.6 Abs Basophils 0 10^3/uL N 0-0.2 Abs Nucleated RBC 0 10^3/uL N Granulocyte % 76.7 % N 38-83 Lymphocyte % 17.1 % Low 25-47 Monocyte % 5.2 % N 1-9 Eosinophil % 0.6 % N 0-6 Basophil % 0.4 % N 0-2 Nucleated Red Blood Cells % 0 N Comp Metabolic Panel 11/26/2015 [facility] Sodium 136 mmol/L N 133-145 [phone] Potassium 3.6 mmol/L N 3.5-5.0 Chloride 97 mmol/L Low 101-111 Co2 Carbon Dioxide 27 mmol/L N 22-32 Anion Gap 12 mmol/L High 2-11 Glucose 89 mg/dL N 70-100 Blood Urea Nitrogen 15 mg/dL N 6-24 Creatinine 0.78 mg/dL N 0.51-0.95 BUN/Creatinine Ratio 19.2 N 8-20 Calcium 10.2 mg/dL N 8.6-10.3 Total Protein 7.6 g/dL N 6.4-8.9 Albumin 5.0 g/dL N 3.2-5.2 Globulin 2.6 g/dL N 2-4 Albumin/Globulin Ratio 1.9 N 1-3 Total Bilirubin 0.90 mg/dL N 0.2-1.0 Alkaline Phosphatase 64 U/L N 34-104 Alt 23 U/L N 7-52 Ast 21 U/L N 13-39 Egfr Non- 93.2 N >60 Egfr 119.9 N >60 14 Laboratory test 11/26/2015 [facility] Lipase 10 U/L Low 11.0-82.0 15 finding [phone] Amylase 24 U/L Low 29-103 16 Urine DIP 11/26/2015 [facility] Leukocytes neg Neg (607)- - Urine Nitrites neg Neg Urobilinogen norm Norm Total Protein, Urine + Neg Urine pH 6 5-6 Urine Blood trace Neg Specific [place] 1.030 High 1.01-1.02 Urine Ketones +++ Neg Urine Bilirubin neg Neg Urine Glucose norm Norm GC/Chlamydia 06/18/2015 [facility] Chlamydia Negative N Negative Amplified Rna [phone] trachomatis Rna Neisseria gonorrhoeae (GC) Rna Negative N Negative Laboratory test 06/18/2015 [facility] Trichomonas Negative N Negative 17 finding [phone] Vaginalis Rna Laboratory test 06/18/2015 [facility] Gardnerella/Yea SEE RESULT 18 finding [phone] st: Vaginal Dna BELOW Laboratory test 06/18/2015 [facility] Cytology SEE RESULT 19 finding [phone] BELOW Urine DIP 06/18/2015 [facility] Leukocytes NEG Neg (607)- - Urine Nitrites NEG Neg Urobilinogen NORM Norm Total Protein, Urine NEG Neg Urine pH 5 5-6 Urine Blood NEG Neg Specific [place] 1.015 1.01-1.02 Urine Ketones NEG Neg Urine Bilirubin NEG Neg Urine Glucose NORM Norm Laboratory test 04/05/2015 [facility] HCG DIP Test neg Neg finding (607)- - Laboratory test 03/26/2015 [facility] Acetaminophen < 15 g/mL N 20 finding [phone] Alcohol < 10 mg/dL N <10 Salicylate < 2.50 mg/dL N <30 TSH (Thyroid Stimulating Horm) 0.16 ?IU/mL Low 0.34-5.60 Comp Metabolic Panel 03/26/2015 [facility] Sodium 136 mmol/L N 133-145 [phone] Potassium 3.8 mmol/L N 3.5-5.0 Chloride 105 mmol/L N 101-111 Co2 Carbon Dioxide 22 mmol/L N 22-32 Anion Gap 9 mmol/L N 2-11 Glucose 83 mg/dL N 70-100 Blood Urea Nitrogen 10 mg/dL N 6-24 Creatinine 0.78 mg/dL N 0.51-0.95 BUN/Creatinine Ratio 12.8 N 8-20 Calcium 10.0 mg/dL N 8.6-10.3 Total Protein 8.0 g/dL N 6.4-8.9 Albumin 5.1 g/dL N 3.2-5.2 Globulin 2.9 g/dL N 2-4 Albumin/Globulin Ratio 1.8 N 1-3 Total Bilirubin 1.70 mg/dL High 0.2-1.0 Alkaline Phosphatase 55 U/L N 34-104 Alt 12 U/L N 7-52 Ast 17 U/L N 13-39 Egfr Non- 93.2 N >60 Egfr 119.9 N >60 21 Urine Drug 03/26/2015 [facility] Amphetamine Ur None Detected N None Detect SCR ED & [phone] Screen Pain Clinic Barbiturates Urine Screen None Detected N None Detect Benzodiazepine Urine Screen Presumptive Posi <SEE NOTE> Abnormal None Detect 22 Urine Cannabinoids Screen Presumptive Posi <SEE NOTE> Abnormal None Detect 23 Urine Cocaine Screen None Detected N None Detect Urine Opiates Screen None Detected N None Detect Urine Phencyclidine Screen None Detected N None Detect 24 Urinalysis Profile 03/26/2015 [facility] Urine Color Yellow N [phone] Urine Appearance Clear N Urine Specific [place] 1.024 N 1.010-1.030 Urine pH 6.0 N 5-9 Urine Urobilinogen Negative N Negative Urine Ketones 1+ Abnormal Negative Urine Protein 1+(30 mg/dL) Abnormal Negative Urine Leukocytes Negative N Negative Urine Blood Negative N Negative Urine Nitrite Negative N Negative Urine Bilirubin Negative N Negative Urine Glucose Negative N Negative Urine White Blood Cell Trace(0-5/hpf) N Absent Urine Red Blood Cell Trace(0-2/hpf) N Absent Urine Bacteria Absent N Absent Urine Squamous Epithelial Cell Present Abnormal Absent CBC Auto Diff 03/26/2015 [facility] White Blood 5.1 10^3/uL N 3.5-10.8 [phone] Count Red Blood Count 4.46 10^6/uL N 4.0-5.4 Hemoglobin 13.6 g/dL N 12.0-16.0 Hematocrit 41 % N 35-47 Mean Corpuscular Volume 93 fL N 80-97 Mean Corpuscular Hemoglobin 31 pg N 27-31 Mean Corpuscular HGB Conc 33 g/dL N 31-36 Red Cell Distribution Width 13 % N 10.5-15 Platelet Count 247 10^3/uL N 150-450 Mean Platelet Volume 8 um3 N 7.4-10.4 Abs Neutrophils 3.4 10^3/uL N 1.5-7.7 Abs Lymphocytes 1.2 10^3/uL N 1.0-4.8 Abs Monocytes 0.4 10^3/uL N 0-0.8 Abs Eosinophils 0.1 10^3/uL N 0-0.6 Abs Basophils 0 10^3/uL N 0-0.2 Abs Nucleated RBC 0 10^3/uL N Granulocyte % 66.7 % N 38-83 Lymphocyte % 24.3 % Low 25-47 Monocyte % 7.3 % N 1-9 Eosinophil % 1.1 % N 0-6 Basophil % 0.6 % N 0-2 Nucleated Red Blood Cells % 0 N Laboratory test 10/03/2013 [facility] HCG DIP Test neg Neg finding (607)- - Urine DIP 10/03/2013 [facility] Specific [place] 1.025 High 1.01-1.02 (607)- - Urine pH 5 5-6 Leukocytes NEG Neg Urine Nitrites NEG Neg Total Protein, Urine 2+ High Neg Urine Glucose NORM Norm Urine Ketones 2+ High Neg Urobilinogen norm Norm Urine Bilirubin neg Neg Urine Blood neg Neg Laboratory test 10/03/2013 [facility] TSH (Thyroid 0.68 IU/mL N 0.34-5.60 finding [phone] Stimulating Horm) Vitamin D, 25 10/03/2013 [facility] 25-Hydroxy <4.0 ng/mL N Hydroxy [phone] Vitamin D2 25-Hydroxy Vitamin D3 27 ng/mL N 25-Hydroxy Vitamin D Total 27 ng/mL N 25 Comp Metabolic Panel 10/03/2013 [facility] Sodium 139 mmol/L N 133-145 [phone] Potassium 4.1 mmol/L N 3.7-5.6 Chloride 104 mmol/L N 101-111 Co2 Carbon Dioxide 27 mmol/L N 22-32 Anion Gap 8 mmol/L N 2-11 Glucose 83 mg/dL N 70-100 Blood Urea Nitrogen 13 mg/dL N 6-24 Creatinine 0.81 mg/dL N 0.51-0.95 BUN/Creatinine Ratio 16.0 N 8-20 Calcium 9.7 mg/dL N 8.6-10.3 Total Protein 7.9 g/dL N 6.4-8.9 Albumin 5.2 g/dL N 3.2-5.2 Globulin 2.7 g/dL N 2-4 Albumin/Globulin Ratio 1.9 N 1-3 Total Bilirubin 1.10 mg/dL High 0.2-1.0 Alkaline Phosphatase 54 U/L N 34-104 Alt 12 U/L N 7-52 Ast 16 U/L N 13-39 Egfr Non- 91.1 N >60 Egfr 117.1 N >60 26 CBC Auto Diff 10/03/2013 [facility] White Blood 5.7 10^3/uL N 4.8-10.8 [phone] Count Red Blood Count 4.32 10^6/uL N 4.0-5.4 Hemoglobin 13.7 g/dL N 12.0-16.0 Hematocrit 40 % N 35-47 Mean Corpuscular Volume 92 fL N 80-97 Mean Corpuscular Hemoglobin 32 pg High 27-31 Mean Corpuscular HGB Conc 35 g/dL N 31-36 Red Cell Distribution Width 12 % N 10.5-15 Platelet Count 264 10^3/uL N 150-450 Mean Platelet Volume 8 um3 N 7.4-10.4 Abs Neutrophils 3.5 10^3/uL N 1.5-7.7 Abs Lymphocytes 1.5 10^3/uL N 1.0-4.8 Abs Monocytes 0.5 10^3/uL N 0-0.8 Abs Eosinophils 0.1 10^3/uL N 0-0.6 Abs Basophils 0 10^3/uL N 0-0.2 Abs Nucleated RBC 0.01 10^3/uL N Granulocyte % 62.0 % N 38-83 Lymphocyte % 27.1 % N 25-47 Monocyte % 9.5 % High 1-9 Eosinophil % 1.0 % N 0-6 Basophil % 0.4 % N 0-2 Nucleated Red Blood Cells % 0.1 N Laboratory 10/03/2013 [facility] Hemoglobin 5.0 % N Less than 6.0 27 test finding [phone] A1c Laboratory 10/03/2013 [facility] Affirm (SEE NOTE) 28 test finding [phone] Vaginal Dna Probe GC/Chlamydia 10/03/2013 [facility] GC/Chlamydia (SEE NOTE) 29 Amplified Rna [phone] Rna Laboratory 02/21/2013 [facility] HCG DIP Test neg Neg test finding (606)- - Laboratory 07/03/2012 [facility] Cytology RUN DATE: 30 test finding [phone] 07/04/ SEE NOTE> GC/Chlamydia 07/03/2012 [facility] GC/Chlamydia (SEE NOTE) 31 Amplified Rna [phone] Rna Laboratory 07/03/2012 [facility] Genital (SEE NOTE) 32 test finding [phone] Culture HIV 1/2 AB 07/03/2012 [facility] HIV 1 2 Nonreactive Nonreactive 33 Evaluation [phone] Antibody Laboratory 05/06/2012 [facility] HCG DIP Test NEG Neg test finding (607)- - Laboratory 03/23/2011 [facility] Strep Screen NEG Neg test finding (607)- - CBC Auto Diff 12/12/2010 [facility] White Blood 3.9 CUMM Low 4.8-10.8 [phone] Count Red Cell Count 3.87 CUMM Low 4.2-5.4 Hemoglobin 12.3 g/dL 12.0-16.0 Hematocrit 35 % 35-47 Mean Corpuscular Volume 91 um3 79-97 Mean Corpuscular Hemoglob 32 pg High 27-31 Mean Corpuscular HGB Cone 35 g/dL 32-36 Redcell Distribution WDTH 13 % 10.5-15 Platelet Count 227 CUMM 150-450 Mean Platelet Volume 8.5 um3 7.4-10.4 Gran % 55.5 % 38-83 Lymph % 32.2 % 25-47 Mononuclear % 10.1 % High 1-9 Eosinophil % 1.7 % 0-6 Basophil % 0.5 % 0-2 Abs Lymphs 1.3 1.0-4.8 Abs Mononuclear 0.4 0-0.8 Absolute Neutrophil Count 2.2 1.5-7.7 Abs Eosinophils 0.1 0-0.6 Abs Basophils 0 0-0.2 Laboratory test 12/12/2010 [facility] TSH 1.50 MIU/ ML 0.34-5.60 finding [phone] Vitamin D, 25 12/12/2010 [facility] 25-Hydroxy <4.0 ng/mL () Hydroxy [phone] Vitamin D2 25-Hydroxy Vitamin D3 26 ng/mL () 25-Hydroxy Vitamin D Total 26 ng/mL () 34 Laboratory test finding 07/28/2009 [facility] Strep Screen NEG Neg (607)- - Urine DIP 03/25/2008 [facility] Leukocytes neg Neg (607)- - Urine Nitrites neg Neg Urine pH 5 5-6 Total Protein, Urine neg Neg Urine Glucose norm Norm Urine Ketones neg Neg Urobilinogen norm Norm Urine Bilirubin neg Neg Urine Blood neg Neg Specific [place] na Low 1.01-1.02 Laboratory test 02/24/2008 [facility] Strep Screen NEG Neg finding (607)- - Laboratory test 07/17/2007 [facility] Strep Screen NEG Neg finding (607)- - Laboratory test 11/09/2006 [facility] Brucella Igg 0.09 INDEX <0.8 35 finding [phone] Titer CBC With Manual 11/09/2006 [facility] White Blood 7.2 CUMM 4.8-14.5 Diff [phone] Count Absolute Neutrophil Count 3.6 Atypical Lymph 15 % High 0-6 Anisocytosis SLIGHT Band Neutrophil 4 % 0-8 Hematocrit 37 % 34-40 Hemoglobin 12.6 g/dL 11.5-14.0 Eosenophil 2 % 0-6 Lymphocyte 22 % 5-47 Mean Corpuscular HGB Cone 34 g/dL 31-36 Mean Corpuscular Hemoglob 30 pg 25-33 Mean Corpuscular Volume 87 um3 77-95 Monocyte 11 % 0-13 Mean Platelet Volume 7.6 um3 7.4-10.4 Platelet Count 193 CUMM 150-450 Polychromasia SLIGHT Polysegmented Neutrophil 46 % 38-83 Red Cell Count 4.26 CUMM 3.9-5.3 Redcell Distribution WDTH 13 % 10.5-15 Cat Scratch 11/09/2006 [facility] Bartonella 1:256 TITER <1:64 Fever Panel [phone] Henselae Igg Bartonella Henselae Igm <1:20 TITER <1:20 Bartonella Campbell Igg 1:64 TITER <1:64 Bartonella Campbell Igm <1:20 TITER <1:20 36 Laboratory test 11/09/2006 [facility] CMV Igg 11.20 INDEX High <0.80 37 finding [phone] Monospot POSITIVE Abnormal Negative Toxoplasma Igm < 0.80 INDEX < 0.8 38 Toxoplasma AB Igg NEGATIVE Negative Laboratory test 05/22/2005 [facility] Strep Screen NEG Neg finding (607)- - Laboratory test 06/07/2004 [facility] Varicella Zoster 2.42 INDEX High <0.91 39 finding [phone] Igg Laboratory test 11/17/2002 [facility] Strep Screen NEG Neg finding (607)- - Urine DIP 10/31/2001 [facility] Leukocytes NEG [phone] Urine Nitrites NEG Urine pH 5 Total Protein, Urine NEG Urine Glucose NEG Urine Ketones NEG Urobolinogen NEG Urine Bilirubin NEG Urine Blood NEG Specific [place] NA Laboratory test 09/16/2001 [facility] Urine Culture FINAL 40 finding [phone] 1 Because ethnic data is not always readily available, this report includes an eGFR for both -Americans and non- Americans. The National Kidney Disease Education Program (NKDEP) does not endorse the use of the MDRD equation for patients that are not between the ages of 18 and 70, are , have extremes of body size, muscle mass, or nutritional status, or are non- or non-. According to the National Kidney Foundation, irrespective of diagnosis, the stage of the disease is based on the level of kidney function: Stage Description GFR(mL/min/1.73 m(2)) 1 Kidney damage with normal or decreased GFR 90 2 Kidney damage with mild decrease in GFR 60-89 3 Moderate decrease in GFR 30-59 4 Severe decrease in GFR 15-29 5 Kidney failure <15 (or dialysis) 2 Normal Range 180 to 914 Indeterminate Range 145 to 180 Deficient Range <145 3 [id number] 4 [id number] 5 [id number] 6 It is recognized that currently available assays for the detection of antibodies to HIV-1 and/or HIV-2 may not detect all infected individuals. HIV antibodies may be undetectable in some stages of the infection and in some clinical conditions. The performance of this assay has not been established for populations of infants or children. Assayed by Chemiluminescence Microparticle Immunoassay on the Siemens Advia Centaur CP. Values obtained with different methods or kits cannot be used interchangeably.The diagnostic specificity of the ADVIA Centaur 1/O/2 Enhanced assay in the low risk population was 99.90% (6052/6058) with a 95% confidence interval of 99.78 to 99.96%. 7 Warning: A positive result is not useful for establishing a diagnosis of syphilis. In most situations, such a result may reflect a prior treated infection; a negative result can exclude a diagnosis of syphilis except for incubating or early primary disease. 8 Because ethnic data is not always readily available, this report includes an eGFR for both -Americans and non- Americans. The National Kidney Disease Education Program (NKDEP) does not endorse the use of the MDRD equation for patients that are not between the ages of 18 and 70, are , have extremes of body size, muscle mass, or nutritional status, or are non- or non-. According to the National Kidney Foundation, irrespective of diagnosis, the stage of the disease is based on the level of kidney function: Stage Description GFR(mL/min/1.73 m(2)) 1 Kidney damage with normal or decreased GFR 90 2 Kidney damage with mild decrease in GFR 60-89 3 Moderate decrease in GFR 30-59 4 Severe decrease in GFR 15-29 5 Kidney failure <15 (or dialysis) 9 <5.0 Negative 5.0 - 25.0 Indeterminate (Repeat testing recommended after 72 hours) >25.0 Positive Perimenopausal women can display HCG levels of up to 20 mIU/mL 10 Therapeutic concentration: <50 ug/mL Toxic concentration: >120 ug/mL 11 [id number] 12 [id number] 13 Because ethnic data is not always readily available, this report includes an eGFR for both -Americans and non- Americans. The National Kidney Disease Education Program (NKDEP) does not endorse the use of the MDRD equation for patients that are not between the ages of 18 and 70, are , have extremes of body size, muscle mass, or nutritional status, or are non- or non-. According to the National Kidney Foundation, irrespective of diagnosis, the stage of the disease is based on the level of kidney function: Stage Description GFR(mL/min/1.73 m(2)) 1 Kidney damage with normal or decreased GFR 90 2 Kidney damage with mild decrease in GFR 60-89 3 Moderate decrease in GFR 30-59 4 Severe decrease in GFR 15-29 5 Kidney failure <15 (or dialysis) 14 Because ethnic data is not always readily available, this report includes an eGFR for both -Americans and non- Americans. The National Kidney Disease Education Program (NKDEP) does not endorse the use of the MDRD equation for patients that are not between the ages of 18 and 70, are , have extremes of body size, muscle mass, or nutritional status, or are non- or non-. According to the National Kidney Foundation, irrespective of diagnosis, the stage of the disease is based on the level of kidney function: Stage Description GFR(mL/min/1.73 m(2)) 1 Kidney damage with normal or decreased GFR 90 2 Kidney damage with mild decrease in GFR 60-89 3 Moderate decrease in GFR 30-59 4 Severe decrease in GFR 15-29 5 Kidney failure <15 (or dialysis) 15 [id number] 17 GC/Chlamydia Source?: Endocervical Trichomonas Source: Endocervical 18 SEE RESULT BELOW Name: MARA CHOI : [address]: Freda Duarte NP Acct: [id number] Unit: [id number] AGE: 20 Location: [facility] Re06/18/15 SEX: F Status: REG REF SPEC: [id number] DUGLAS: 06/18/15-[address]: Freda Duarte NP REQ: [id number] RECD: 06/18/15-1799 STATUS: COMP _ SOURCE: VAGINAL SPDESC: ORDERED: Corie,Yeast DNA Procedure Result Reported Site Gardnerella/Yeast: Vaginal DNA Final 06/19/15- 1201 ML Organism 1 Negative Gardnerella Organism 2 Negative Lianet The presence of G. vaginalis, although suggestive, is not diagnostic for bacterial vaginosis. Results should be interpreted in conjuction with other clinical and laboratory data available. Women with vaginal discharge should be evaluated for risk factors of cervicitis and pelvic inflammatory disease, toxic shock syndrome (S.aureus), and if present, evaluated for organisms not included in this assay such as N. gonorrhoeae, C. trachomatis, Mobiluncus, Mycoplasma and/or Prevotella. Mixed infections may occur. The performance of this test on patient specimens collected during or immediately after antimicrobial therapy is unknown. The presence or absence of Lianet species, or G. vaginalis cannot be used as a test for therapeutic success or failure. * ML - MAIN LAB ([facility]) . END OF REPORT * ML=Testing performed at Main Lab DEPARTMENT OF PATHOLOGY, [address] [place] [address] Carlos Chaudhary M.D. Director [facility] # [id number] 19 SEE RESULT BELOW Name: MARA CHOI : [address]: Freda Duarte WARPING MACHINE OPERATOR Acct: [id number] Unit: [id number] AGE: 20 Location: [facility] Re06/18/15 SEX: F Status: REG REF SPEC: [id number] DUGLAS: 06/18/15-[address]: Freda Duarte WARPING MACHINE OPERATOR REQ: [id number] RECD: 06/18/15973 STATUS: SOUT _ ORDERED: IMAGE ANALYSIS FINAL DIAGNOSIS Negative for Intraepithelial lesion or Malignancy A. Ectocervical/Endocervical Specimen Adequacy: Satisfactory of evaluation Transformation zone component identified Patient Information: HPV: Thin Layer Pap Test w/reflex to high risk HPV RNA testing when ASCUS HPV 16/18 Genotype for HPV pos Actual Specimen Date: 06/18/15 Other Pertinent History: No History Given Signed (signature on file) ELIZA Larson (ASCP) 06/20 2866 This Pap test was evaluated with the assistance of the BrainScope CompanyPrep Test Imaging System. Due to cytologic findings at the metal treater microscope, comprehensive manual rescreening by a Brick And Block Mason may be required. The Pap Smear is a screening test designed to aid in the detection of premalignant and malignant conditions of the uterine cervix. It is not a diagnostic procedure and should not be used as the sole means of detecting cervical cancer. Both false- positive and false- negative reports do occur. Depending on your risk status, a Pap smear should be obtained and evaluated every 1-3 years. END OF REPORT * ML=Testing performed at Main Lab DEPARTMENT OF PATHOLOGY, [address] [place] [address] Carlos Chaudhary M.D. Director [facility] # [id number] 20 Therapeutic concentration: <50 ug/mL Toxic concentration: >120 ug/mL 21 Because ethnic data is not always readily available, this report includes an eGFR for both -Americans and non- Americans. The National Kidney Disease Education Program (NKDEP) does not endorse the use of the MDRD equation for patients that are not between the ages of 18 and 70, are , have extremes of body size, muscle mass, or nutritional status, or are non- or non-. According to the National Kidney Foundation, irrespective of diagnosis, the stage of the disease is based on the level of kidney function: Stage Description GFR(mL/min/1.73 m(2)) 1 Kidney damage with normal or decreased GFR 90 2 Kidney damage with mild decrease in GFR 60-89 3 Moderate decrease in GFR 30-59 4 Severe decrease in GFR 15-29 5 Kidney failure <15 (or dialysis) 22 Presumptive Positive 23 Presumptive Positive 24 The urine specimen was tested at the listed cutoffs: Drug class test level (ng/mL) Amphetamines 500 Barbituates 200 Benzodiazepine metabolites 200 Cocaine metabolites 150 Cannabinoids 50 Opiates 300 Pcp 25 This is a screening procedure. Positive results are not confirmed. Specimen was received without chain of custody. Results should be used for medical purposes only. 25 -- REFERENCE VALUE -- 25-HYDROXY D TOTAL (D2+D3) Optimum levels in the healthy population are 20-50, patients with bone disease may benefit from higher levels within this range. Test Performed by: [facility] - [address] [address] Whiskey Filterer: Rakesh Navarro III, M.D. 26 Because ethnic data is not always readily available, this report includes an eGFR for both -Americans and non- Americans. The National Kidney Disease Education Program (NKDEP) does not endorse the use of the MDRD equation for patients that are not between the ages of 18 and 70, are , have extremes of body size, muscle mass, or nutritional status, or are non- or non-. According to the National Kidney Foundation, irrespective of diagnosis, the stage of the disease is based on the level of kidney function: Stage Description GFR(mL/min/1.73 m(2)) 1 Kidney damage with normal or decreased GFR 90 2 Kidney damage with mild decrease in GFR 60-89 3 Moderate decrease in GFR 30-59 4 Severe decrease in GFR 15-29 5 Kidney failure <15 (or dialysis) 27 Therapeutic target for the treatment of diabetes Mellitus patients is <7% HBA1C, and in selective patients <6.0%.Please refer to [place] [employer] Diabetic care guidelines for further information. 28 RUN DATE: 10/04/13 [facility] LIVE PAGE 1 RUN TIME: [address] [place] [id number] Specimen Inquiry Name: MARCUS CHOIY JENNYFER : [address]: Freda Duarte NP Acct: [id number] Unit: [id number] AGE: 18 Location: [facility] Re10/03/13 SEX: F Status: REG REF SPEC: [id number] DUGLAS: 10/03/13-1712 [facility] DR: Freda Duarte NP REQ: [id number] RECD: 10/03/13 STATUS: COMP _ SOURCE: VAGINAL SPDESC: ORDERED: Affirm QUERIES: [employer] Number [id number] Procedure Result Verified Site Affirm Vaginal DNA Probe Final 10/04/13- 1311 ML Organism 1 Negative Trichomonas Organism 2 Negative Lianet Organism 3 Negative Gardnerella The presence of G. vaginalis, although suggestive, is not diagnostic for bacterial vaginosis. Results should be interpreted in conjunction with other clinical and laboratory data available. Women with vaginal discharge should be evaluated for risk factors of cervicitis and pelvic inflammatory disease, toxic shock syndrome (S.aureus), and if present, evaluated for organisms not included in this assay such as N. gonorrhoeae, C. trachomatis, Mobiluncus, Mycoplasma and/or Prevotella. Mixed infections may occur. The performance of this test on patient specimens collected during or immediately after antimicrobial therapy is unknown. The presence or absence of Lianet species, G. vaginalis or T. vaginalis cannot be used as a test for therapeutic success or failure. END OF REPORT * ML=Testing performed at Main Lab DEPARTMENT OF PATHOLOGY, [facility] [place], [place] [address] Carlos Chaudhary M.D. Director [facility] # [id number] 29 RUN DATE: 10/06/13 [facility] LIVE PAGE 1 RUN TIME: 1422 [facility] [place], [place] [address] Specimen Inquiry Name: MAMADOUMARCUS MendenhallSasha DOZIEREN : [address]: Freda Duarte NP Acct: [id number] Unit: [id number] AGE: 18 Location: [facility] Re10/03/13 SEX: F Status: REG REF SPEC: [id number] DUGLAS: 10/03/13-[address]: Freda Duarte NP REQ: [id number] RECD: 10/03/13 STATUS: COMP _ SOURCE: URINE SPDESC: ORDERED: GC/Chlam RNA QUERIES: Medent Number [id number] Procedure Result Verified Site Chlamydia Trachomatis RNA Final 10/06/13- 1422 ML NEGATIVE for Chlamydia trachomatis rRNA GC (N. gonorrhoeae) RNA Final 10/06/13- 1419 ML NEGATIVE for Neisseria gonorrhoeae rRNA A negative result does not preclude the presence of a C. trachomatis or N. gonorrhoeae infection because results are dependent on adequate specimen collection, absence of inhibitors, and sufficient rRNA to be detected. Test results may be affected by improper specimen collection, improper storage, technical error, or specimen mixup. Limitations of the Procedure: The Aptima Combo 2 Assay is not intended for the evaluation of suspected sexual abuse or for other medico-legal indications. For those patients for whom a false positive result may have adverse psychosocial impact, the CDC recommends retesting by a method using an alternate technology. Therapeutic failure or success cannot be determined with the Aptima Combo 2 Assay since nucleic acid may persist following appropriate antimicrobial therapy. Results from the Aptima Combo 2 Assay should be interpreted in conjunction with other laboratory and clinical data available to the clinican. CONTINUED ON NEXT PAGE * ML=Testing performed at [facility] Lab DEPARTMENT OF PATHOLOGY, [address] [place], [place] [address] Carlos Chaudhary M.D. Director MIGUELINA # [id number] RUN DATE: 10/06/13 [facility] LAB LIVE PAGE 2 RUN TIME: [address] [place] [address] Specimen Inquiry Patient: MARA CHOI [id number] (Continued) Specimen: [id number] Collected: 10/03/13 Received: 10/03/13-1802 (Continued) Procedure Result Verified Site GC (N. gonorrhoeae) RNA Final (continued) 10/06/13- 1419 Performance characteristics for detecting C. trachomatis and N. gonorrhoeae are derived from high prevalence populations. Positive results in low prevalence populations should be interpreted carefully with the understanding that the likelihood of a false positive may be higher than a true positive. END OF REPORT * ML=Testing performed at Main Lab DEPARTMENT OF PATHOLOGY, [facility] [place], [place] [address] Carlos Chaudhary M.D. Director [facility] # [id number] 30 RUN DATE: 07/04/12 [facility] LAB LIVE PAGE 1 RUN TIME: [address] [facility] [address] [place], [place] [address] Specimen Inquiry Name: MARA CHOI : [address]: Freda Duarte NP Acct: [id number] Unit: [id number] AGE: 17 Location: [facility] Re07/03/12 SEX: F Status: REG REF SPEC: [id number] DUGALS: 07/03/12-[address]: Freda Duarte NP REQ: [id number] RECD: 07/03/12-1211 STATUS: SOUT _ ORDERED: IMAGE ANALYSIS, PAP SM PATH REV FINAL DIAGNOSIS EPITHELIAL CELL ABNORMALITIES Low grade squamous intraepithelial lesion (LSIL) A. Ectocervical/Endocervical Specimen Adequacy: Satisfactory of evaluation Transformation zone component identified Patient Information: HPV: Thin Layer Pap Test w/reflex to high risk HPV DNA testing when ASCUS Actual Specimen Date: 07/03/12 LMP If Unknown: Last Menstrual Period Not Given. Other Pertinent History: First pap Signed (signature on file) Carlos Chaudhary MD 1385 This Pap test was evaluated with the assistance of the Crowdnetic Test Imaging System. Due to cytologic findings at the metal treater microscope, comprehensive manual rescreening by a Brick And Block Mason may be required. The Pap Smear is a screening test designed to aid in the detection of premalignant and malignant conditions of the uterine cervix. It is not a diagnostic procedure and should not be used as the sole means of detecting cervical cancer. Both false- positive and false- negative reports do occur. Depending on your risk status, a Pap smear shoudl be obtained and evaluated every 1-3 years. END OF REPORT * ML=Testing performed at Main Lab DEPARTMENT OF PATHOLOGY, [address] [place] [address] Carlos Chaudhary M.D. Director [facility] Permit #[id number] 31 RUN DATE: 07/05/12 [facility] LAB LIVE PAGE 1 RUN TIME: [address] [place] [address] Specimen Inquiry Name: MARA CHOI : [address]: Freda Duarte NP Acct: [id number] Unit: [id number] AGE: 17 Location: [facility] Re07/03/12 SEX: F Status: REG REF SPEC: [id number] DUGLAS: 07/03/12-1029 [facility] DR: Freda Duarte NP REQ: [id number] RECD: 07/03/12-1219 STATUS: NELSON CR DR: Jolynn Zaman NP _ SOURCE: ENDOCERVIX SPDESC: ORDERED: ROSA/Janny RNA QUERIES: Medent Number [id number] Procedure Result Verified Site Chlamydia Trachomatis RNA Final 07/05/12- 1402 ML NEGATIVE for Chlamydia trachomatis rRNA GC (N. gonorrhoeae) RNA Final 07/05/12- 1402 ML NEGATIVE for Neisseria gonorrhoeae rRNA A negative result does not preclude the presence of a C. trachomatis or N. gonorrhoeae infection because results are dependent on adequate specimen collection, absence of inhibitors, and sufficient rRNA to be detected. Test results may be affected by improper specimen collection, improper storage, technical error, or specimen mixup. Limitations of the Procedure: The Aptima Combo 2 Assay is not intended for the evaluation of suspected sexual abuse or for other medico-legal indications. For those patients for whom a false positive result may have adverse psychosocial impact, the CDC recommends retesting by a method using an alternate technology. Therapeutic failure or success cannot be determined with the Aptima Combo 2 Assay since nucleic acid may persist following appropriate antimicrobial therapy. Results from the Aptima Combo 2 Assay should be interpreted in conjunction with other laboratory and clinical data available to the clinican. CONTINUED ON NEXT PAGE * ML=Testing performed at Main Lab DEPARTMENT OF PATHOLOGY, [facility] [place], [place] [address] Carlos Chaudhary M.D. Director [facility] Permit #[id number] RUN DATE: 07/05/12 [facility] LAB LIVE PAGE 2 RUN TIME: 207 [facility] [address] [place], [place] [address] Specimen Inquiry Patient: MARA CHOI [id number] (Continued) Specimen: [id number] Collected: 07/03/12 Received: 07/03/12 (Continued) Procedure Result Verified Site GC (N. gonorrhoeae) RNA Final (continued) 07/05/12- 1402 Performance characteristics for detecting C. trachomatis and N. gonorrhoeae are derived from high prevalence populations. Positive results in low prevalence populations should be interpreted carefully with the understanding that the likelihood of a false positive may be higher than a true positive. END OF REPORT * ML=Testing performed at Main Lab DEPARTMENT OF PATHOLOGY, [facility] [place], [place] [address] Carlos Chaudhary M.D. Director [facility] Permit #[id number] 32 RUN DATE: 07/05/12 [facility] LAB LIVE PAGE 1 RUN TIME: [address] [facility] [address] [place], [place] [address] Specimen Inquiry Name: MARA CHOI : [address]: Freda Duarte NP Acct: [id number] Unit: [id number] AGE: 17 Location: [facility] Re07/03/12 SEX: F Status: REG REF SPEC: [id number] DUGLAS: 07/03/12-1023 [facility] DR: Freda Duarte NP REQ: [id number] RECD: 07/03/12121 STATUS: NELSON CR DR: Jolynn Zaman NP _ SOURCE: VAGINAL SPDESC: ORDERED: Genital Culture QUERIES: Medent Number [id number] Procedure Result Verified Site Genital Culture Final 07/05/12- 955 ML Organism 1 CORIE VAGINALIS - PRESUMPTIVE Quantity 2+ END OF REPORT * ML=Testing performed at Main Lab DEPARTMENT OF PATHOLOGY, [address] [place] [address] Carlos Chaudhary M.D. Director [facility] Permit #[id number] 33 It is recognized that currently available assays for the detection of antibodies to HIV-1 and/or HIV-2 may not detect all infected individuals. HIV antibodies may be undetectable in some stages of the infection and in some clinical conditions. The performance of this assay has not been established for populations of infants or children. Assayed by Chemiluminescence Microparticle Immunoassay on the Siemens Advia Centaur CP. Values obtained with different methods or kits cannot be used interchangeably.The diagnostic specificity of the ADVIA Centaur 1/O/2 Enhanced assay in the low risk population was 99.90% (6021/6039) with a 95% confidence interval of 99.78 to 99.96%. 34 -- REFERENCE VALUE -- 25-HYDROXY D TOTAL (D2+D3) Optimum levels in the normal population are 25-80 Test Performed by: [facility] Dpt of Lab Med and Pathology [address] [place] [address] Whiskey Filterer: Rakesh Navarro III, M.D. 35 Less than 0.90 IV ....... Negative - No significant level of detectable Brucella IgG antibody. 0.90 - 1.10 IV .......... Equivocal - Questionable presence of Brucella IgG antibody. Repeat testing in 10-14 days may be helpful. Greater than 1.10 IV .... Positive - IgG antibody to Brucella detected which may indicate current or previous infection. Seroconversion between acute and convalescent sera is considered strong evidence of current or recent infection. The best evidence for infection is a significant change on two appropriately timed specimens, where both tests are done in the same laboratory at the same time. This assay may not detect antibodies to B. canis. Test(s) performed at: [address] [address] 36 THIS TEST WAS DEVELOPED UTILIZING A COMMERCIAL PRODUCT OR KIT LABELED "INVESTIGATIONAL USE ONLY". THE KIT OR PRODUCT HAS NOT BEEN CLEARED OR APPROVED BY THE U.S. FOOD AND DRUG ADMINISTRATION (FDA). THE PERFORMANCE CHARACTERISTICS OF THE TEST WERE ESTABLISHED THROUGH VALIDATION BY [employer], [address] [place] [address]. THIS TEST SHOULD NOT BE USED FOR DIAGNOSIS WITHOUT CONFIRMATION BY OTHER MEDICALLY ESTABLISHED MEANS. TEST PERFORMED BY: [employer]. [address] [place] [phone] 37 REFERENCE RANGE FOR CMV IGG ABS: LESS THAN 0.80 INDEX . . . . . . . NEGATIVE 0.80 - 0.99 INDEX . . . . . . . . EQUIVOCAL GREATER THAN 0.99 INDEX . . . . . POSITIVE CMV DIAGNOSTIC SEROLOGY COMMENT: THIS ASSAY IS NOT INTENDED FOR DONOR TESTING. TEST PERFORMED BY: [employer]. [address] [place] [phone] 38 REFERENCE RANGE FOR TOXOPLASMA GONDII IGM ABS: LESS THAN 0.80 INDEX . . . . NEGATIVE 0.80 - 0.99 INDEX . . . . . EQUIVOCAL GREATER THAN 0.99 INDEX . . . POSITIVE TEST PERFORMED BY: [employer]. [address] [place] [phone] 39 REFERENCE RANGE FOR VARICELLA-ZOSTER ABS: LESS THAN 0.91 INDEX . . . . . NEGATIVE 0.91 - 1.09 INDEX . . . . . . EQUIVOCAL GREATER THAN 1.09 INDEX . . . POSITIVE TEST PERFORMED BY: [employer]. [address] [place] [phone] 43 Source: URINE,VOIDED No significant growth. Procedures Date Code Description Status 04/26/2016 71837 Insertion, Non-Biodegradable Drug Delivery Implant Completed 02/14/2016 18994 Therapeutic,Prophylactic,Or Diagnostic Inj,SC/Im Specify Completed Drug 11/26/2015 68367 Therapeutic,Prophylactic,Or Diagnostic Inj,SC/Im Specify Completed Drug 09/06/2015 25768 Therapeutic,Prophylactic,Or Diagnostic Inj,SC/Im Specify Completed Drug 06/18/2015 22242 Therapeutic,Prophylactic,Or Diagnostic Inj,SC/Im Specify Completed Drug 04/05/2015 60512 Therapeutic,Prophylactic,Or Diagnostic Inj,SC/Im Specify Completed Drug 07/22/2013 55069 Therapeutic,Prophylactic,Or Diagnostic Inj,SC/Im Specify Completed Drug 05/12/2013 63054 Therapeutic,Prophylactic,Or Diagnostic Inj,SC/Im Specify Completed Drug 02/21/2013 33769 Therapeutic,Prophylactic,Or Diagnostic Inj,SC/Im Specify Completed Drug 01/10/2013 04304 IUD Insertion Completed 10/21/2012 62994 Therapeutic,Prophylactic,Or Diagnostic Inj,SC/Im Specify Completed Drug 08/05/2012 72040 Therapeutic,Prophylactic,Or Diagnostic Inj,SC/Im Specify Completed Drug 05/06/2012 87804 Therapeutic,Prophylactic,Or Diagnostic Inj,SC/Im Specify Completed Drug 04/19/2010 78020 Removal-Impacted Cerumen Completed 04/18/2010 77556 Removal-Impacted Cerumen Completed 10/29/2009 41314 Removal-Impacted Cerumen Completed 03/11/2003 35529 Audiometric Screening Test, Pure Tone, Air Only Completed 03/11/2003 12427 Removal-Impacted Cerumen Completed Encounters Type Date Location Provider Dx Diagnosis Office Visit 07/16/2017 Main Office Jolynn Zaman, F41.9 Anxiety disorder, 10:30a FORENSIC ENGINEER-C unspecified Office Visit 03/26/2017 Main Office Eve Joe, N63.0 Unspecified lump in 2:00p WARPING MACHINE OPERATOR unspecified breast Z23 Encounter for immunization Office Visit 11/22/2016 4:30p Main Office Freda Duarte, FORENSIC ENGINEER-C R11.0 Nausea S60.414A Abrasion of right ring finger, initial encounter Office Visit 10/16/2016 3:45p Main Office Freda Duarte, F41.1 Generalized FORENSIC ENGINEER-C anxiety disorder Office Visit 08/15/2016 4:15p Main Office Freda Duarte, M79.622 Pain in left upper FORENSIC ENGINEER-C arm Office Visit 07/18/2016 3:30p Main Office Freda Duarte, F41.1 Generalized FORENSIC ENGINEER-C anxiety disorder Office Visit 04/21/2016 4:00p Main Office Freda Duarte, F41.1 Generalized FORENSIC ENGINEER-C anxiety disorder F32.89 Other specified depressive episodes Z30.9 Encounter for contraceptive management, unspecified Office Visit 03/15/2016 2:30p Main Office Freda Duarte, N64.9 Disorder of breast, FORENSIC ENGINEER-C unspecified F41.1 Generalized anxiety disorder Z23 Encounter for immunization Office Visit 11/26/2015 3:30p Main Office Freda Duarte, R19.8 Oth symptoms and FORENSIC ENGINEER-C signs involving the dgstv sys and abdomen Z30.9 Encounter for contraceptive management, unspecified Office Visit 06/22/2015 4:15p Main Office Freda Duarte, F41.1 Generalized anxiety FORENSIC ENGINEER-C disorder Office Visit 06/18/2015 11:00a Main Office Freda Duarte, R10.9 Unspecified FORENSIC ENGINEER-C abdominal pain N76.0 Acute vaginitis Z30.9 Encounter for contraceptive management, unspecified Office Visit 04/05/2015 4:00p Main Office Freda Duarte, Z48.02 Encounter for FORENSIC ENGINEER-C removal of sutures F32.8 Other depressive episodes Office Visit 11/23/2014 4:00p Main Office Freda Duarte, 300.02 Anxiety Disorder FORENSIC ENGINEER-C Generalized Office Visit 10/03/2013 4:00p Main Office Freda Duarte, 789.9 Abdomen & Pelvis FORENSIC ENGINEER-C Symptoms Other 924.9 Contusion Unspec Site 791.0 Proteinuria 300.02 Anxiety Disorder Generalized V25.9 Contraceptive Management Unspec Office Visit 06/13/2013 9:00a Main Office Freda Duarte, 300.02 Anxiety Disorder FORENSIC ENGINEER-C Generalized Office Visit 05/12/2013 9:00a Main Office Freda Duarte, V25.09 Contraceptive FORENSIC ENGINEER-C Management Other 300.02 Anxiety Disorder Generalized Office Visit 02/21/2013 9:45a Main Office Amy Vee V25.09 Contraceptive Ra Parson Management Other Office Visit 11/18/2012 2:45p Main Office Gisele Gutierrez, 530.81 Esophageal Reflux Ra, R.D. 535.00 Gastritis Acute W/O Hemorrhage Office Visit 10/21/2012 9:00a Main Office Freda Duarte, 300.02 Anxiety Disorder FORENSIC ENGINEER-C Generalized V25.09 Contraceptive Management Other Office Visit 07/03/2012 9:15a Main Office Freda Duarte, 616.10 Vaginitis & FORENSIC ENGINEER-C Vulvovaginitis Unspec V73.89 Screening Examination Viral Diseases Other Spec Office Visit 05/06/2012 11:15a Main Office Gisele Gutierrez V25.09 Contraceptive Ra, R.DKeegan Management Other Office Visit 02/17/2012 9:00a Main Office Gisele Gutierrez, 530.81 Esophageal Reflux Ra, R.D. 784.0 Headache 780.52 Insomnia Unspecified Office Visit 04/24/2011 3:30p Main Office Freda Duarte, 311 Depressive Disorder FORENSIC ENGINEER-C Not Elsewhere Spec 300.02 Anxiety Disorder Generalized 381.9 Eustachian Tube Disorder Unspec Office Visit 03/23/2011 4:45p Main Office Jolynn Li 382.9 Otitis Media Unspec Storm, FORENSIC ENGINEER-C Office Visit 03/06/2011 10:30a Main Office Freda Duarte, 300.02 Anxiety Disorder FORENSIC ENGINEER-C Generalized Office Visit 01/24/2011 9:00a Main Office Freda Duarte, 311 Depressive Disorder FORENSIC ENGINEER-C Not Elsewhere Spec Office Visit 12/27/2010 9:00a Main Office Freda Duarte, 311 Depressive Disorder FORENSIC ENGINEER-C Not Elsewhere Spec Office Visit 12/12/2010 9:30a Main Office Freda Duarte, 311 Depressive Disorder FORENSIC ENGINEER-C Not Elsewhere Spec Office Visit 10/29/2009 3:30p Main Office Gisele Gutierrez, 380.4 Kayla Hanna M.D., RBindu 873.23 Open Wound Nasal Sinus W/O Complication Office Visit 07/28/2009 4:30p Main Office Jolynn Li 465.9 URI Upper Storm, FORENSIC ENGINEER-C Respiratory Infections Acute Unspec Sites Office Visit 03/25/2008 2:30p Main Office Jody Kumar 789.00 Pain Abdominal Tirso, Unspec Site F.N.P.C. Office Visit 02/24/2008 3:15p Main Office Jolynn Li 465.9 URI Upper Storm, FORENSIC ENGINEER-C Respiratory Infections Acute Unspec Sites Office Visit 07/17/2007 4:15p Main Office Jody Stacy 462 Pharyngitis Acute Tirso, F.N.P.C. 786.2 Cough Office Visit 11/19/2006 12:00p Main Office Jody Kumar 785.6 Lymph Nodes Tirso, F.N.P.C. Enlargement 075 Mononucleosis Infectious Office Visit 11/09/2006 3:30p Main Office Jody A. 785.6 Lymph Nodes Tirso, F.N.P.C. Enlargement Office Visit 10/27/2005 12:45p Main Office Zaid Boogie M.D. V20.2 Routine Or Child Health Check V06.1 Djqqfoeskr-Bqbxqau-Qqrpoxay Combined (DTaP) Office Visit 05/25/2005 11:15a Main Office Zaid Boogie, 372.00 Conjunctivitis Acute M.D. Unspec Office Visit 05/22/2005 11:30a Main Office Messi Grier 465.9 URI Maximus Brown M.D. Respiratory Infections Acute Unspec Sites Office Visit 04/18/2005 4:45p Main Office Zaid Boogie 380.22 Otitis Externa Other M.D. Acute Office Visit 01/01/2004 4:00p Main Office Zaid Boogie 465.9 URI Upper M.D. Respiratory Infections Acute Unspec Sites 920 Contusion Face Scalp & Neck Except Eyes Office Visit 07/01/2003 4:30p Main Office Amy Vee 782.1 Rash & Other Nonspec Ra Parson Skin Eruption Office Visit 11/17/2002 11:15a Main Office Jody Kumar 462 Pharyngitis Acute Tirso, F.N.P.C. Office Visit 09/05/2002 10:45a Main Office Amy Vee 873.20 Open Wound Nose Ra Parson Unspec Site W/O Complication Office Visit 10/31/2001 2:30p Main Office Raina Obando V20.2 Routine Infant Or Ra Arvizu Child Health Check Office Visit 09/16/2001 3:30p Main Office Raina Obando 788.41 Urinary Frequency Ra Arvizu Office Visit 06/25/2001 10:15a Main Office Raina Obando 034.0 Streptococcal Sore Ra Arvizu Throat Plan of Treatment Future Appointment(s):07/11/2018 3:00 pm - LILIYA Kevin at Main [place]7006/04/2018 - Raina Arvizu M.D.M79.602 Pain in left armFollow up:. - - SET UP PHYSICAL WITH SS- ALSO DUE FOR TDAPRecommendations:-- YOUR NEXPLANON IS IN ITS PROPER PLACE AND FEELS OK, NO SIGNS OF INFECTION -- YOU ARE DUE TO REPLACE/ REMOVE THE NEXPLANON IN 1 YEAR (APRIL 2019)- IF THIS CONTINUES TO BOTHER YOU ON A REGULAR BASISBEFORE THEN, YOU CAN CHANGE TO DIFFERENT CONTROL PRIOR TO THAT -- SEE JOLYNN FOR YOUR PHYSICAL -- YOU ARE ALSO DUE FOR YOUR TETANUS/ WHOOPING COUGH (TDAP) SMWNEZAF27.9 Unspecified abdominal painFollow up:.Recommendations:-- I THINK YOUR LOWER ABDOMINAL DISCOMFORT IS LIKELY HORMONAL, LIKE MENSTRUAL CRAMPS. I DON'T FIND ANY SIGNS OF APPENDICITIS OR WORRISOME FINDINGS. -- FOR THE ACID REFLUX- TAKE THE RANITIDINE/ ZANTAC 150 MG TWICE PER DAY FOR 1 MONTH- IF YOUR SYMPTOMS PERSIST AFTER 1 WEEK, LET ME KNOW - YOU SHOULD START FEELING BETTER WITHIN 1 WEEKR53.83 Other fatigueFollow up: .Recommendations:-- WE ARE CHECKING BLOODWORK TO MAKE SURE YOUR THYROID, BLOOD COUNT, ELECTROLYTES, VITAMIN B12 AND VITAMIN D LEVELS ARE OKAY -- CALL IN 1 WEEK IF YOU DON'T HEAR FROM US ABOUT ZGUDDUAU38.3 Encounter for screening for infections with a predominantlyComments:PT WOULD LIKE STI SCREENING.Recommendations:-- CALL IN 1 WEEK FOR YOUR SCREENING RESULTS IF YOU DON'T HEAR FROM US
[2018-06-29 18:41] LABS: ABS Basophils 0 10^3/ul (0-0.2); ABS Eosinophils 0 10^3/ul (0-0.6); ABS Lymphocytes 0.9 10^3/ul (1.0-4.8); ABS Monocytes 0.5 10^3/ul (0-0.8); ABS Neutrophils 4.2 10^3/ul (1.5-7.7); ABS Nucleated RBC 0 10^3/ul; Eosinophil % 0.5 %; Hematocrit 35 % (33-41); Hemoglobin 11.8 g/dL (12.0-16.0); Lymphocyte % 15.2 %; Mean Corpuscular HGB Conc 34 g/dL (31-36); Mean Corpuscular Hemoglobin 31 pg (27-31); Mean Corpuscular Volume 92 fL (80-97); Mean Platelet Volume 7.3 fL (7.4-10.4); Nucleated Red Blood Cells % 0; Platelet Count 302 10^3/uL (150-450); Red Blood Count 3.81 10^6 /uL (3.70-4.87); Red Cell Distribution Width 14 % (10.5-15); White Blood Count 5.7 10^3/uL (3.5-10.8)
[2018-06-29 18:58] LABS: ALT 21 U/L (7-52); AST 23 U/L (13-39); Albumin 4.6 g/dL (3.2-5.2); Albumin/Globulin Ratio 1.8 (1-3); Alkaline Phosphatase 45 U/L (34-104); Anion Gap 8 mmol/L (2-11); BUN/Creatinine Ratio 20.3 (8-20); Blood Urea Nitrogen 13 mg/dL (6-24); CO2 Carbon Dioxide 25 mmol/L (22-32); Calcium 9.3 mg/dL (8.6-10.3); Chloride 106 mmol/L (101-111); EGFR African American 137.9 (>60); Globulin 2.5 g/dL (2-4); Glucose 108 mg/dL (70-100); Potassium 3.9 mmol/L (3.5-5.0); Sodium 139 mmol/L (135-145); Total Protein 7.1 g/dL (6.4-8.9)
[2018-06-29 19:17] LABS: Acetaminophen < 15 mcg/mL; Alcohol < 10 mg/dL (<10); Salicylate < 2.50 mg/dL (<30)
[2018-06-29 19:32] LABS: TSH (Thyroid Stimulating Horm) 0.48 mcIU/mL (0.34-5.60)
[2018-06-29 19:39] LABS: Urine Appearance Cloudy; Urine Bilirubin Negative (Negative); Urine Blood Negative (Negative); Urine Color Yellow; Urine Glucose Negative (Negative); Urine Ketones 1+ (Negative); Urine Nitrite Negative (Negative); Urine Protein Negative (Negative); Urine Specific Gravity 1.017 (1.010-1.030); Urine Urobilinogen Positive (Negative)
[2018-06-29 19:55] LABS: Barbiturates Urine Screen None Detected (None Detect); Benzodiazepine Urine Screen None Detected (None Detect); Urine Cannabinoids Screen Presumptive Positive (None Detect)
[2018-06-29] MEDS ORDERED: LORazepam INJ* 2 MG/ML 1 ML VIAL IM ONE (20:17)
[2018-06-29 20:36] LABS: Creatine Kinase 274 U/L (10-223)
[2018-06-30] MEDS ORDERED: LORazepam TAB(*) 1 MG PO ONE (00:33)
[2018-06-30] MEDS ORDERED: OLANzapine TAB* 10 MG PO ONE (01:51)
--- NOTE | 2018-06-30 03:32 | ED ---
Progress - Progress Note Progress Note: This patient was signed out from KHANG Masterson to Dr. Gomez upon shift change , and is in MHU hold. Patient will be signed out to Dr. Burrows, upon shift change, pending MHE. - Consult/PCP Time Called: 12:30 Course/Dx - Course Course Of Treatment: This patient was signed out from KHANG Masterson to Dr. Gomez upon shift change, and is in MHU hold. Patient will be signed out to Dr. Burrows, upon shift change, pending MHE. - Diagnoses Provider Diagnoses: Suicide attempt, Amphetamine overdose, Psychotic disorder Discharge - Sign-Out/Discharge Documenting (check all that apply): Sign-Out Patient - pending MHE Signing out patient TO: Benjy Burrows Patient Received Moderate/Deep Sedation with Procedure: No - Discharge Plan Condition: Improved [place] [place] Disposition and Condition Condition: IMPROVED Disposition: Psychiatric Facility [facility] - Attestation Statements Document Initiated by Scribe: Yes Documenting Scribe: Jules Rodriguez Provider For Whom Yadira is Documenting (Include Credential): Trevor Gomez MD Scribe Attestation: Jules Santiago, scribed for Trevor Gomez MD on 07/06/18 at 1951. Scribe Documentation Reviewed: Yes Provider Attestation: The documentation as recorded by the Jules soares accurately reflects the service I personally performed and the decisions made by me, Trevor Gomez MD Status of Scribe Document: Viewed
--- NOTE | 2018-06-30 07:12 | ED ---
Progress - Progress Note Progress Note: Receiving sign out from Dr. Gomez, pending MHE. Pt's condition is stable. She will be admitted involuntarily to Dr. Claudio, with final dx of suicide attempt, mood disorder, and amphetamine overdose. Re-Evaluation - Re-Evaluation First Eval Re-Evaluation Time: 08:55 Change: Worse Comment: Pt is upset and crying. She states she wants to leave and attempted to walk out of the ED. Will give Geodon, Ativan, and soft restraints. Course/Dx - Course Course Of Treatment: Nurse's notes reviewed. Patient had been observed through the night and was becoming increasingly more agitated, screaming and running in the ER. She required medical restraint as well as physical restraints for short time. She had been seen and evaluated by crisis and was later accepted for psychiatric admission by the psychiatrist on an involuntary basis. - Diagnoses Provider Diagnoses: Suicide attempt, Amphetamine overdose, Psychotic disorder - Provider Notifications Discussed Care Of Patient With: Pedro Claudio Time Discussed With Above Provider: 09:20 Instructed by Provider To: Admit As Inpatient - involuntary admit - Critical Care Time Critical Care Time: 30-74 min - CCT is EXCLUSIVE of separately billable procedures. Discharge - Sign-Out/Discharge Documenting (check all that apply): Patient Departure - Admit, Receiving Sign- Out Receiving patient FROM: Trevor Gomez Patient Received Moderate/Deep Sedation with Procedure: No - Discharge Plan Condition: Fair [place] [place] Disposition and Condition Condition: FAIR Disposition: [place] [facility] [place] Attestation Statements Document Initiated by Scribe: Yes Documenting Scribe: Maye Freedman Provider For Whom Yadira is Documenting (Include Credential): Benjy Burrows MD Scribe Attestation: Maye Santiago, scribed for Benjy Burrows MD on 06/30/18 at 1455. Scribe Documentation Reviewed: Yes Provider Attestation: The documentation as recorded by the Maye soares accurately reflects the service I personally performed and the decisions made by me, Benjy Burrows MD Status of Scribe Document: Viewed
[2018-06-30] MEDS ORDERED: Mouth Piece, Nicotine* 1 EACH CARTRIDGE ONE ×3 (07:44→18:27)
[2018-06-30] MEDS: Nicotine Inhaler* 10 MG AMP INH PRN ×2 (07:53→18:25)
[2018-06-30] MEDS ORDERED: Ziprasidone IM INJ* 20 MG/ML VIAL IM ONE (08:57)
[2018-06-30] MEDS ORDERED: LORazepam INJ* 2 MG/ML 1 ML VIAL IV PUSH ONE (08:57)
[2018-06-30] MEDS ORDERED: Acetaminophen TAB* 325 MG PO PRN (13:42)
[2018-06-30] MEDS ORDERED: Nicotine Inhaler* 10 MG AMP INH PRN (13:42)
[2018-06-30] MEDS ORDERED: Nicotine GUM* 2 MG PO PRN (13:42)
[2018-06-30] MEDS ORDERED: Al Hydrox/Mg Hydrox/Simet LIQ* 30 ML UDC PO PRN (13:42)
[2018-06-30] MEDS ORDERED: Mouth Piece, Nicotine* 1 EACH CARTRIDGE INH SCH (13:42)
[2018-06-30] MEDS ORDERED: Ziprasidone * 20 MG CAP (generic Geodon) PO PRN (13:44)
[2018-06-30] MEDS: LORazepam TAB(*) 1 MG PO PRN (18:23)
[2018-07-01] MEDS: LORazepam TAB(*) 1 MG PO PRN ×2 (07:40→15:08)
[2018-07-01] MEDS: Vitamin THERAPEUTIC TAB PO SCH (07:40)
[2018-07-01] MEDS: Nicotine Inhaler* 10 MG AMP INH PRN (08:15)
[2018-07-01] MEDS: risperiDONE-M * 1 MG TAB.ORADIS PO SCH ×2 (11:46→21:57)
[2018-07-01] MEDS: Gabapentin CAP(*) 400 MG PO SCH ×4 (11:46→21:56)
[2018-07-01] MEDS: Nicotine PATCH 14 MG/24 HR* PATCH TRANSDERM SCH (11:47)
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
[2018-07-02] MEDS: Nicotine Patch Removal NOTE FOLLOW UP SCH ×2 (07:40→21:26)
[2018-07-02] MEDS: Nicotine PATCH 14 MG/24 HR* PATCH TRANSDERM SCH (07:42)
[2018-07-02] MEDS: Vitamin THERAPEUTIC TAB PO SCH (07:42)
[2018-07-02] MEDS: risperiDONE-M * 1 MG TAB.ORADIS PO SCH ×2 (07:43→21:21)
[2018-07-02] MEDS: Gabapentin CAP(*) 400 MG PO SCH ×4 (07:43→21:21)
[2018-07-02 08:15] LABS: HDL Cholesterol 53.9 mg/dL
[2018-07-02] MEDS: Nicotine Inhaler* 10 MG AMP INH PRN ×3 (09:12→21:35)
[2018-07-02] MEDS: LORazepam TAB(*) 1 MG PO PRN ×3 (09:14→21:31)
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
[2018-07-03 08:24] VITALS: BP 131/68
[2018-07-03] MEDS: Gabapentin CAP(*) 400 MG PO SCH ×4 (08:45→22:03)
[2018-07-03] MEDS: risperiDONE-M * 1 MG TAB.ORADIS PO SCH ×2 (08:45→22:04)
[2018-07-03] MEDS: Vitamin THERAPEUTIC TAB PO SCH (08:45)
[2018-07-03] MEDS: Nicotine PATCH 14 MG/24 HR* PATCH TRANSDERM SCH (08:47)
[2018-07-03] MEDS: Nicotine Inhaler* 10 MG AMP INH PRN ×4 (08:50→17:36)
[2018-07-03] MEDS ORDERED: Methylphenidate ER TAB* 18 MG PO SCH (09:00)
[2018-07-03] MEDS: LORazepam TAB(*) 1 MG PO PRN ×3 (10:49→18:51)
--- NOTE | 2018-07-03 11:29 | PN ---
Subjective - Subjective Date of Service: 07/03/18 Service Type: 66481 Hosp care 25 min moderate complexity Subjective: Patient often interrupts gag writer when visible meeting with others. She reacts to limit setting with irritability, yelling and demanding behavior. Later in day, gag writer and Andrew Good LCSW met with patient. Patient is defensive and blames gag writer for "having attitude." She attributed above symptoms to untreated ADHD. She is somewhat inconsistent with information about treatment history of ADHD, specifically in regards to stimulants trialed. Patient reports she cannot sense that she is taking a stimulant today (concerta). She states she typically likes the energizing effect of high dose of focalin and that overuse leads to "spirituality." Patient instructed of expected effects of stimulants and encouraged that such actions are jeannie to addiction. She endorses poor concentration, distractibility and racing thoughts. Patient is receptive to suggestion of symptoms linked to untreated bipolar disorder. She agrees to medication changes, including taking as prescribed. Objective - General Observations Appearance: Neat Appears Stated Age: Yes Stature: WNL Posture: WNL Eye Contact: Average Behavior/Activity: Accelerated, Impulsive - Interaction Observations Attitude Towards Examiner: Demanding, Manipulative, Dismissive, Disrespectful Stated Mood: Irritable Affect: Full Speech Pattern/Tone: Clear, Pressured Thought Process: Circumstantial, Racing Perception: WNL Thought Content: WNL Hallucination Type: Denies Delusion Type: Denies, Somatic - Cognitive Function Orientation: A&O x 4 Level of Consciousness: Alert Cognition: WNL Estimated Intelligence: Normal Insight: Mostly Blames Others for Problems Judgment Within Normal Limits: No Ability to Make Reasonable Decisions: Moderately Impaired - Medication Compliance Cooperative with Inpatient Medication Regimen: Yes - Group Participation Participates in Group Activities: Partial Assessment - Assessment Merits Inpatient Hospitalization: For Immediate Safety, For Stabilization, For Discharge Planning Inpatient DSM-V Dx: F31.81 Clinical Impression: 23yo wf, tenuously domiciled with hx of bipolar d/o and cannabis use d/o who presented to ED in disorganized and psychotic state after overuse of prescribed stimulant. She merits hospitalization for immediate safety, stabilization and discharge planning. Plan - Plan Treatment Plan: Name: LILIAN RODRIGUEZ Birthdate: 1995 [id number] continue acute intensive psychiatric treatment. may decrease to q30min obs and allow staff pass. DC concerta. Add vyvanse 40mg qam, increase risperidone to 2mg bid discharge to include family and outpatient providers Continued Medication Management: Start Medication Medications: Current Medications Acetaminophen (Tylenol Tab*) 650 mg PO Q4H PRN PRN Reason: PAIN or TEMP > 101 F Al Hydrox/Mg Hydrox/Simethicone (Maalox Plus*) 30 ml PO Q4H PRN PRN Reason: INDIGESTION Device (Nicotine Mouth Piece*) 1 each INH .[facility] Gabapentin (Neurontin Cap(*)) 400 mg PO QID [facility] Last Admin: 07/03/18 08:45 Dose: 400 mg Lorazepam (Ativan Tab(*)) 1 mg PO Q4H PRN PRN Reason: AGITATION Last Admin: 07/03/18 10:49 Dose: 1 mg Methylphenidate HCl (Concerta Er Tab*) 36 mg PO DAILY [facility] Last Admin: 07/03/18 08:45 Dose: 36 mg Multivitamins (Theragran Tab*) 1 tab PO DAILY [facility] Last Admin: 07/03/18 08:45 Dose: 1 tab Nicotine (Nicotine Inhaler*) 10 mg INH Q2H PRN PRN Reason: CRAVING Last Admin: 07/03/18 08:50 Dose: 10 mg Nicotine (Nicotine Inhaler*) 10 mg INH Q2H PRN PRN Reason: CRAVING Nicotine (Nicotine Patch 14 Mg/24 Hr*) 1 patch TRANSDERM DAILY [facility] Last Admin: 07/03/18 08:47 Dose: 1 patch Nicotine Polacrilex (Nicotine Gum*) 2 mg PO Q2H PRN PRN Reason: CRAVING Pharmacy Profile Note (Nicotine Patch Removal Note*) 1 note FOLLOW UP 2100 [facility] Last Admin: 07/02/18 21:26 Dose: 1 note Risperidone (Risperdal-M Tab *) 1 mg PO BID [facility]; Protocol Last Admin: 07/03/18 08:45 Dose: 1 mg - Discharge Plan Discharge Plan: Inpatient Hospitalization Outpatient Program: Tomy MARTINEZ
[2018-07-03] MEDS: Nicotine Patch Removal NOTE FOLLOW UP SCH (22:08)
[2018-07-04] MEDS: Vitamin THERAPEUTIC TAB PO SCH (08:00)
[2018-07-04] MEDS: Gabapentin CAP(*) 400 MG PO SCH ×2 (08:01→12:43)
[2018-07-04] MEDS: risperiDONE-M * 1 MG TAB.ORADIS PO SCH (08:01)
[2018-07-04] MEDS: Nicotine Inhaler* 10 MG AMP INH PRN ×2 (08:04→10:11)
[2018-07-04] MEDS ORDERED: Lisdexamfetamine(NF) 10 MG CAP PO SCH (09:00)
[2018-07-04] MEDS: Nicotine PATCH 14 MG/24 HR* PATCH TRANSDERM SCH (10:10)
--- NOTE | 2018-07-04 14:59 | CONS ---
PSYCHOLOGICAL REPORT: DATE OF CONSULTATION: 07/04/18 PROCEDURE CODE: [id number]. REASON FOR REFERRAL: Mara was referred for psychological testing secondary to concerns regarding psychotic range disturbance as well as borderline personality vulnerabilities as she has a positive history for delicate self- mutilation. TEST ADMINISTERED: Mara completed the [place] Multiphasic Personality Inventory-2 (MMPI-2), and was given feedback in individual conversation regarding test results. She was also seen by this internal communications writer in a context of cognitive behavioral group psychotherapy on 3 occasions during her hospitalization. RELEVANT HISTORY: Mara is a 23-year-old female who is with her mother and stepfather in [place], [place]. 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 Historically, she was diagnosed with learning disability as well as attention deficit hyperactivity disorder with concerns regarding reported history of schizophrenia. This reported history includes her biological father who apparently was diagnosed as a paranoid schizophrenic. Mara initially was very physically agitated upon her presentation to the hospital needing medications while in the ED after she tried to abscond from the hospital. She also presented as behaviorally agitated on her first day of admission, often yelling at people while on the phone and becoming increasingly frustrated to the point of banging the flatwork tier on the phone and being very demanding with staff and yelling at various people. With medications and a decent night sleep, she presented much differently on her second day and was able to engage productively in programming. As her hospitalization continued, Mara was able to participate in clear and coherent clinical conversation and able to discuss relevant history in a topical and insightful fashion. She expressed gratitude for staff's efforts particularly in programming as well as in helping her to deal with her symptoms in a meaningful fashion. Mara describes diminished need for sleep when she is in one of her "manic" periods, which she is able to discuss with her outpatient therapist through [facility]. She describes having a good rapport with her therapist and appreciates her efforts a great deal. It is apparent that Mara is conflicted about dealing with these manic episodes as she describes having many different clairvoyant experiences including one led to her breaking up with her boyfriend in recent months. She describes being able to see him engaging in things and doing things that she would not have access to without her "gift." She is concerned that these experiences are not real and that the angels that protect her are not real in fact and this would make her very disappointed and sad if the part of her symptoms are not part of her real experiences. However, Mara clearly is able to discuss these ideas in a coherent fashion without becoming defensive and has appropriate emotional reaction to discussion regarding concerns about untreated donavan. Discussion addressed the concept of a paradoxical illness in that donavan is often considered to be a gift by people who experienced it and who are reluctant to adequately medicate or treat such symptoms. Concerns are that Mara is defensive about these experiences in her developmental state anyway and does not identify poor sleep hygiene is problematic. Clinical interventions focused on the importance of sleep and to consider avoiding what sounds to be her enroller routine where she will awaken at 3 to 4 a.m. in order to get ready for work at 8 a.m. TEST RESULTS: Mara provides a valid protocol on this administration of the MMPI- 2 despite elevating to emotional duress scales in a moderate fashion. She elevates hypomania scale significantly (T=80) as well as the paranoia and schizophrenia scales to a slightly higher degree. Upon her admission, Mara had been having difficulties with paranoid mentation, which seemed to clear with treatment quite effectively. Her score is felt to be reflective of a bipolar 1 disorder characterized by manic episodes. Concerns regarding borderline personality were not supported in her response on this administration of the MMPI-2. Of particular note, her depression scale is subclinical. IMPRESSIONS AND RECOMMENDATIONS: Discussion with Mara emphasized the bipolar 1 condition and how to successfully treat her difficulties with donavan. As mentioned above, she is rather conflicted about this, although she impresses as having engaged in and benefited from outpatient therapy in recent history. Concerns are perhaps genetic loading for significant psychiatric difficulties secondary to her father's difficulties with schizophrenia. Mara describes being quite terrified by the prospects of developing schizophrenia as she has firsthand experience in what such problems look like; however, she is somewhat contradicted about discussion regarding donavan as at least in part the symptoms impressed as supporting self-esteem issues associated with having clairvoyance and experiences with other "angels" that she finds nurturing. Currently, Mara does not impress as a threat to engage in self-injury as she denies having done so since the age of 18, although there is still a significant scarring readily apparent in her arms. Ongoing treatment should emphasize the importance of sleep hygiene as well as compliance with medications. Reinforcing the discussion that untreated bipolar condition is likely to expand organically in the brain and cause higher levels of impairment as people age if left untreated. Mara impresses as a good candidate to continue to benefit from outpatient services. [id number]/[facility] #: [id number] SHILO
--- NOTE | 2018-07-06 00:38 | DS ---
CC: [facility]; [facility] * DISCHARGE SUMMARY: DATE OF ADMISSION: 06/30/18 DATE OF DISCHARGE: 07/04/18 SUPERVISING PSYCHIATRIST: Dr. Luiz Rivera.* (DICTATED BY MARIA CRUM NP) DISCHARGE DIAGNOSES: 1. Bipolar 2 disorder. 2. Attention deficit hyperactivity disorder. 3. Substance-induced psychosis. CONDITION AT TIME OF DISCHARGE: Improved. The patient is euthymic and in behavioral control. She is pleasant and cooperative. She has been safe on all checks and demonstrated improved distress tolerance and insight. She reports improvement in mood lability and has been compliant with prescribed medications. The patient reports desire to be discharged. She is agreeable to rest of the care at [facility] in [facility]. She and her mother agree that she can stay at her parent's house while awaiting placement at [facility]. The patient has showed improved ability to manage her mood. She denies suicidal ideation, urges for self-harm. She endorses future orientation and is eager to return home to prepare for transition to [facility]. MENTAL STATUS EXAM: Mara is a 23-year-old white female who appears stated age. She is well-groomed and wearing her own clothing, and her makeup is meticulous. She has dark black hair and wearing her own clothing. The patient is alert and oriented x3. Eye contact is good. Speech is soft, articulate, and spontaneous. Mood is euthymic with bright affect. No abnormal psychomotor activity noted. Thought process is logical, goal directed, and coherent. Content of thought is negative for suicidal ideation or urges for self-harm. She denies delusions or preoccupations. There are no perceptual disturbances noted. Insight and judgment are good, much improved. Fund of knowledge is adequate. INSTRUCTIONS GIVEN TO THE PATIENT: A. Medications: 1. Gabapentin 400 mg p.o. 4 times a day. 2. Vyvanse 40 mg p.o. q.a.m. 3. Risperidone 2 mg p.o. b.i.d. B. Diet is regular. C. Activity as tolerated. Tobacco cessation is declined by the patient. There are no pending labs or diagnostic studies. D. Followup care: The patient will resume with her primary care provider, Freda Duarte NP at [facility] as needed and she will resume mental health treatment with [facility]. HOSPITAL COURSE - PART A: Reason for admission: The patient presented to emergency department via EMS due to erratic behavior, aggression, and overdose on Focalin. At time of admission, there was mention of a suicide note, but this was since identified to be erroneous. The patient presented to the emergency department after her parents called EMS due to aggressive and erratic behavior, paranoid delusions, and overdosing on Focalin. The patient told EMS that her parents are trying to frame her. She presented as guarded. While in the emergency department, she was increasingly agitated, attempting to leave, and required emergency medications. According to collateral from the EMR, the patient had been yelling and screaming at her stepfather with paranoid thoughts of people breaking into the home. She presented with disorganized thought processes and endorsed paranoid ideation. HOSPITAL COURSE - PART B: Psychiatric treatment rendered: The patient was admitted to adult behavioral services unit on an involuntary status. Her code status is full. She was placed on 15-minute checks for her safety. We started risperidone and gabapentin along with p.r.n. lorazepam for anxiety and agitation. We obtained an MMPI which endorsed hypomania and personality disorder qualities. The patient was noted to have extreme mood lability, irritability, impulsivity, and intrusiveness. She was defensive and hostile with treatment providers. She did agree to medication changes. We trialed Concerta and the patient reported that this did not work. She states that she liked ADHD medicine for the "jolt" and energy that it provides. She was given feedback about addictive behaviors. The patient reported undertreated ADHD ever since childhood. We discussed the overlap of symptoms between bipolar disorder and ADHD. She reported and demonstrated improved mood and behavior with Vyvanse and risperidone. She reported difficulty with family dynamics including feeling as though her stepfather was more important to her mother than she was. The patient reported desire to be more independent and to move out of the home. Social work coordinated with her outpatient providers and identified respite care at [facility]. The patient was agreeable with this plan. We discussed remaining hospitalized until bed opening at [facility]. The patient was initially very dismissive and reactive about this. She was later more reasonable and reported understanding. In the meantime, the patient and her mother agreed that she could stay at her mother's home until availability of [facility]. On day of discharge, the patient reported appreciation for treatment received. She apologized for maladaptive behaviors. She was validated for her improvement and encouraged to continue working with outpatient providers of her maintenance. MARIA CRUM, DULCE [id number]/CPS #: [id number]
== END 2018-07-04 12:50 | disposition home or self-care (01) | DRG 753 ==
LOC: ED 18:05 → BSU 06-30 12:28
PROVIDERS: ADMIT Psychiatry & Neurology Psychiatry; ATTEND Psychiatry & Neurology Psychiatry
DX: F31.81 Bipolar II disorder (principal); F15.950 Other stimulant use, unspecified with stimulant-induced psychotic disorder with delusions; F90.9 Attention-deficit hyperactivity disorder, unspecified type; T43.631A Poisoning by methylphenidate, accidental (unintentional), initial encounter; F17.290 Nicotine dependence, other tobacco product, uncomplicated; F12.90 Cannabis use, unspecified, uncomplicated; F81.9 Developmental disorder of scholastic skills, unspecified; Y92.009 Unspecified place in unspecified non-institutional (private) residence as the place of occurrence of the external cause; Z79.899 Other long term (current) drug therapy; Z91.410 Personal history of adult physical and sexual abuse; Z81.8 Family history of other mental and behavioral disorders; Z88.2 Allergy status to sulfonamides
CPT/HCPCS: 36415; 80053; 80061; 80307; 80320; 80329; 81003; 82550; 83036; 84443; 85025; 93005; 96130; 99222; 99232; 99238; 99284; A9270-GY; G0480; J2060; J3486